=== PATIENT | female | born 1960 | race Caucasian/White ===

== ENCOUNTER → 2019-12-20 17:42 | Outpatient (CLI) | payer BC, SELFPAY ==
--- NOTE | ~2019-12-20 | XR_ITS ---
EXAMINATION: XR chest 2V 12/20/2019 18:03 INDICATION: Cough and shortness of breath PROCEDURE: 2 view chest COMPARISON: 09/18/2012 FINDINGS: The lungs are clear. The cardiomediastinal silhouette is within normal limits. There are no pleural effusions. There is no pneumothorax suspected. IMPRESSION: 1: NO ACUTE CARDIOPULMONARY DISEASE. Reviewed, dictated and finalized at location A.
== END ==
PROVIDERS: PCP Internal Medicine; Visit Provider Internal Medicine
DX: R05 Cough (principal)
CPT/HCPCS: 71046

== ENCOUNTER 2024-04-06 16:14 | Emergency (ER) | payer BC, SELFPAY ==
--- NOTE | ~2024-04-06 | XR_ITS ---
EXAMINATION: XR ankle LT min 3V DATE: 04/06/2024 16:27 INDICATION: Fall. TECHNIQUE: 3 views of left ankle were obtained. COMPARISON: None. FINDINGS: Bone alignment is normal. No fracture. There is mild midfoot osteoarthritis. There are enth esophytes at the posterior and plantar aspects of calcaneal tuberosity. Ankle soft tissue swelling is noted. IMPRESSION: 1. No fracture. Reviewed, dictated and finalized at location E. IMPRESSION: 1. No fracture.
--- NOTE | ~2024-04-06 | XR_ITS ---
EXAMINATION: XR ankle RT min 3V DATE: 04/06/2024 16:27 INDICATION: Fall. TECHNIQUE: 3 views of right ankle were obtained. COMPARISON: None. FINDINGS: Bone alignment is normal. There is an oblique fracture of distal fibula with medial aspect of the fracture line at the level of the tibial plafond. The distal fracture fragment demonstrates 2 mm posterolateral displacement. There is an avulsion fracture of distal tip of the medial malleolus. There is a chip fracture of the posterior malleolus. There is mild midfoot osteoarthritis. There are enthesophytes at the posterior and plantar aspects of calcaneal tuberosity. Ankle soft tissue swellin g is noted. IMPRESSION: 1. Trimalleolar ankle fracture. Reviewed, dictated and finalized at location E.
[2024-04-06 16:20] VITALS: BP 195/61; PULSE 72; RESP 18; TEMP 36.9; O2SAT 100
--- NOTE | 2024-04-06 16:32 | ED.GENADULT ---
HPI - General Adult General Chief complaint: Extremity Injury, Lower Stated complaint: ankle injury Time Seen by Provider: 04/06/24 16:17 History of Present Illness HPI narrative: 63 old female presents to the emergency department for evaluation for bilateral ankle pain. Patient reports she was walking down the stairs missed the last step and rolled both her ankles. Patient denies striking her head and denies any loss consciousness. Related Data Home Medications Medication Instructions Recorded Confirmed albuterol sulfate 90 mcg/actuation 1 puff inhalation Q4H PRN 08/24/22 08/30/23 aerosol inhaler clobetasol 0.05 % topical cream 1 applic topical DAILY 08/24/22 08/30/23 fenofibrate 160 mg tablet 160 mg PO DAILY 08/24/22 08/30/23 glimepiride 4 mg tablet 4 mg PO QAM 08/24/22 08/30/23 hydroxychloroquine 200 mg tablet 200 mg PO BID 08/24/22 08/30/23 metformin 500 mg tablet,extended 500 mg PO BID 08/24/22 08/30/23 release 24 hr metoprolol tartrate 50 mg tablet 50 mg PO BID 08/24/22 08/30/23 aspirin 325 mg tablet 325 mg PO DAILY 08/30/23 08/30/23 ferrous sulfate 325 mg (65 mg mg PO 08/30/23 08/30/23 iron) tablet (FeroSul) lisinopril 20 tablet PO 08/30/23 08/30/23 mg-hydrochlorothiazide 25 mg tablet Allergies Allergy/AdvReac Type Severity Reaction Status Date / Time hydrocodone Allergy Severe DIFFICULTY Verified 04/06/24 16:26 SWALLOWING Review of Systems Review of Systems: All systems reviewed & are unremarkable except as noted in HPI and below PMFSH Past Medical History Medical History (Updated 04/06/24 @ 17:09 by Robert Canchola MD) Diabetes type 2, controlled High cholesterol History of lump of right breast Hypertension Lupus Screening mammogram for breast cancer Surgical History Surgical History History of cholecystectomy (~1989) History of foot surgery (~03/20/19) (L) History of shoulder surgery (~1999) (R) shoulder History of suburethral sling procedure (~2008) History of total abdominal hysterectomy (~1997) Family History Family History Father Cerebrovascular accident Heart disease Mother Hypertension Diabetes mellitus Malignant neoplasm of uterus Sibling Multiple sclerosis sister Social History Social History (Updated 08/30/23 @ 08:46 by Aisha Garcia CMA) Smoking status: Never smoker Alcohol intake: current Alcohol use details: 1-2 month Substance use: never Substance use type: does not use Lack of Transportation: No Lack of Food: Sometimes True Current Housing: Decline to Answer Concerned About Future Housing: Decline to Answer Difficulty Paying Gas/Electric Bills: No Difficulty Paying for Meds: No Currently Unemployed: YES Education: High School Diploma/GED Difficulty w/ Childcare or Family Care: No Living arrangements: other Additional living arrangements comments: Occupation/Education: retired Gender identity (if verbalized by the patient): Female Sexual Orientation (if Verbalized by the Patient): Straight or Heterosexual Course Course Emergency Course: Patient was placed in a splint , and encouraged close follow-up with Orthopedics. Vital Signs Vital signs: Vital Signs Temperature 98.4 F 04/06/24 16:20 Pulse Rate 72 04/06/24 16:20 Respiratory Rate 18 04/06/24 16:20 Blood Pressure 195/61 H 04/06/24 16:20 Pulse Oximetry 100 04/06/24 16:20 Oxygen Delivery Room Air 04/06/24 16:20 Temperature 98.4 F 04/06/24 16:20 Pulse Rate 72 04/06/24 16:20 Respiratory Rate 18 04/06/24 16:20 Blood Pressure 195/61 H 04/06/24 16:20 Pulse Oximetry 100 04/06/24 16:20 Oxygen Delivery Room Air 04/06/24 16:20 Medical Decision Making MDM Narrative Medical decision making narrative: [age] old female presented emergency department for evaluation for bilateral
[2024-04-06] MEDS: KETOROLAC 30 MG/ML VIAL (*BKC) IM (17:14)
== END 2024-04-06 17:34 | disposition home or self-care (01) ==
PROVIDERS: Emergency Provider Emergency Medicine; PCP Internal Medicine
DX: S82.851A Displaced trimalleolar fracture of right lower leg, initial encounter for closed fracture (principal); E11.9 Type 2 diabetes mellitus without complications; Z79.84 Long term (current) use of oral hypoglycemic drugs; E78.5 Hyperlipidemia, unspecified; I10 Essential (primary) hypertension; X50.0XXA Overexertion from strenuous movement or load, initial encounter
CPT/HCPCS: 29515; 73610; 96372; 99284; J1885

== ENCOUNTER 2024-11-14 07:56 | Outpatient (CLI) | payer OTHER, SELFPAY ==
--- NOTE | ~2024-11-14 | MM_ITS ---
EXAMINATION: MM screening kaitlynn BI w jessica HISTORY: Screening TECHNIQUE: Craniocaudal and mediolateral oblique 3-D tomosynthesis images were obtained and synthetic 2-D images were generated. CAD analysis was submitted and interpreted. COMPARISON: No prior mammogram is available for comparison at this institution. BREAST PARENCHYMAL COMPOSITION: Not dense: There are scattered areas of fibroglandular density. FINDINGS: There is no evidence of suspicious mass, calcification, or architectural distortion to sugg est malignancy in either breast. There has been no suspicious interval change. IMPRESSION: 1. No mammographic evidence of malignancy. 2. Recommend routine screening mammography in one year. BI-RADS Category 1: Negative Reviewed, dictated and finalized at location B. [facility]
--- OUTSIDE RECORDS SUMMARY | 2024-11-14 08:01 | XMS_ITS | Referral Summary ---
Author Organization [facility] Address [address] [place] [address] Care Team Providers Care Director Of Rooms Name Role Phone Fabiano Horowitz MD Primary Care Provider [phone] Lew Green MD Unavailable [phone] Allergies Active Allergy Reactions Criticality Noted Date Comments Hydrocodone-Acetamin ophen Other (See comments),Shortness of breath High 09/03/2012 shortness of breath dysphagia Medications zinc gluconate 50 mg tablet Take 1 tablet by mouth daily Active metFORMIN XR (GLUCOPHAGE XR) 500 mg 24 hr tablet Take 500 mg by mouth 4 (four) times a day 1 07/31/2019 Active lancets misc 1 each by other route daily 12/03/2018 Active glimepiride (AMARYL) 4 mg tablet daily 06/14/2019 Active cholecalciferol (VITAMIN D-3) 5,000 unit capsule Take by mouth daily 07/23/2015 Active blood glucose diagnostic strip daily 09/10/2014 Ac tive aspirin 81 mg chewable tablet 81 mg daily Ac tive albuterol HFA (PROVENTIL HFA,VENTOLIN HFA,PROAIR HFA) 90 mcg/actuation inhaler Inhale 2 puffs every 6 (six) hours as needed 10/25/2018 Active fenofibrate (TRIGLIDE) 160 mg tablet daily 08/14/2019 Active metoprolol tartrate (LOPRESSOR) 50 mg immediate release tablet Take 1 tablet (50 mg total) by mouth daily 90 tablet 1 06/24/2021 Active metoprolol tartrate (LOPRESSOR) 50 mg immediate release tablet Take 1 tablet (50 mg total) by mouth 2 (two) times a day 180 tablet 1 11/04/2021 Active hydrALAZINE (APRESOLINE) 100 mg tablet Take 100 mg by mouth 2 (two) times a day Active amLODIPine (NORVASC) 5 mg tablet Take 1 tablet (5 mg total) by mouth daily 90 tablet 12/21/2021 Active Active Problems Problem Noted Date Diagnosed Date Renal insufficiency 08/09/2019 Anemia 08/09/2019 PVC (premature ventricular contraction) 11/07/19 19 Palpitations 10/25/2018 Iron deficiency anemia 09/22/2017 Chest pain 09/21/2017 Right hip pain 05/01/2017 Serum creatinine raised 09/28/2016 Hypercalcemia 09/20/2016 HTN (hypertension) 09/06/2016 Lipids abnormal 09/06/2016 Sleep apnea 09/06/2016 SOB (shortness of breath) 09/06/2016 Type 2 diabetes mellitus without complications ( [facility]) 09/06/2016 Chronic cough 08/26/2016 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 Sebaceous cyst 12/19/2013 Depression 06/18/2013 Insomnia 08/02/2012 Hyperlipidemia 06/18/2012 Social History Tobacco Use Types Packs/Day Years Used Date Smoking Tobacco: Never Tobacco Cessation:Counseling Given: No Alcohol Use Standard Drinks/Week Comments Yes 0 (1 standard drink = 0.6 oz pur e alcohol) Occasionally 1 drink a week Personal Safety Answer Date Recorded Getting School Help Needed Not on file 11/29 Comments Unknown Sex and Gender Information Value Date Recorded Sex Assigned at Not on file Legal Sex Female 2:23 PM [employer] Gender Identity Not on file Sexual Orientation Not on file Last Filed Vital Signs Vital Sign Reading Time Taken Comments Blood Pressure 130/62 12/01/2021 10:56 AM [employer] [employer] Pulse 71 12/01/2021 10:56 AM [employer] Temperature 36.3 C (97.3 F) 12/01/2021 10:56 AM [employer] Respiratory Rate - - Oxygen Saturation 98% 12/01/2021 10: 56 AM [employer] Inhaled Oxygen Concentration - - Weight 86.1 kg (189 lb 12.8 oz) 022 10:56 AM [employer] Height 154.9 cm (5' 1 ) 12/01/2021 10:5 6 AM [employer] Body Mass Index 35.86 12/01/2021 10:56 AM [employer] Plan of Treatment Not on file Procedures Procedure Name Priority Date/Time Associated Diagnosis Comments BASIC METABOLIC PANEL Routine 12/14/2021 2:33 PM [employer] [employer] Leg swelling LIPID PANEL Routine 08/14/2019 11:05 AM [employer] from Last 3 Months or Most Recently Relevant to Health Maintenance Results * (ABNORMAL) Basic metabolic panel (12/14/2021 2:33 PM [employer] [employer]) Glucose 201(H) 65 - 99 mg/dL [facility] Comment: Fasting reference interval For someone without known diabetes, a glucose value >125 mg/dL indicates that they may have diabetes and this should be confirmed with a follow-up test. BUN 34(H) 7 - 25 mg/dL [facility] Creatinine 1.20(H) 0.50 - 0.99 mg/dL [facility] Comment: For patients >49 years of age, the reference limit for Creatinine is approximately 13% higher for people identified as -Sudanese. eGFR NON-AFR. SYRIAN 48(L) > OR = 60 mL/min/1. 73m2 [facility] EGFR 56(L) > OR = 60 mL/min/1. 73m2 [facility] BUN/creat ratio 28(H) 6 - 22 (calc) [facility] Sodium 142 135 - 146 mmol/L [facility] Potassium, pl 4.6 3.5 - 5.3 mmol/L [facility] Chloride 106 98 - 110 mmol/L [facility] CO2 25 20 - 32 mmol/L [facility] Calcium 9.9 8.6 - 10.4 mg/dL [facility] Blood specimen (specimen) 12/14/2021 2:33 PM [facility] 12/14/2021 2:34 PM [employer] [employer] Lew Green MD LAB BLOOD ORDERABLES Final R esult Performing Organization Address [facility] Co de Phone Number LUISA Monson [address] [phone] * (ABNORMAL) Lipid panel (08/14/2019 11:05 AM [facility]) Cholesterol 145 <200 mg/dL [facility] HDL 37(L) >50 mg/dL [facility] Triglycerides 226(H) <150 mg/dL [facility] Comment: If a non-fasting specimen was collected, consider repeat triglyceride testing on a fasting specimen if clinically indicated. Ritu et al. J. of Clin. Lipidol. 2015;9:129-169. LDL 77 mg/dL (calc) [facility] Comment: Reference range: <100 Desirable range <100 mg/dL for primary prevention; <70 mg/dL for patients with CHD or diabetic patients with > or = 2 CHD risk factors. LDL-C is now calculated using the Devon-Hernandez calculation, which is a validated novel method providing better accuracy than the Friedewald equation in the estimation of LDL-C. Devon CUNNINGHAM et al. TROY. 2013;310(19): 3878-5987 (http://education.PinkUP/faq/BDR485) Chol/HDL ratio 3.9 <5.0 (calc) [facility] Non-HDL, (LDL+VLDL) 108 <130 mg/dL (calc) [facility] Comment: For patients with diabetes plus 1 major ASCVD risk factor, treating to a non-HDL-C goal of <100 mg/dL (LDL-C of <70 mg/dL) is considered a therapeutic option. 08/14/2019 11:0 5 AM [facility] [employer] 08/14/2019 11:06 AM [facility] [employer] Narrative [facility] - 08/15/2019 11:11 AM [facility] [employer] FASTING:YES FASTING: YES Resulting Agency Comment Performing Organization Information: Site ID: [id number] Name: Luisa Monson Address: [address] [id number] Director: rBian Travis D.O., MPH Lew Green MD LAB BLOOD ORDERABLES Final R esult [facility] [place] from Last 3 Months or Most Recently Relevant to Health Maintenance [place] Care Teams Director Of Rooms Relationship Specialty Start Date End Date Fabiano Horowitz MD [address] [place] [address] PCP - General 11/16/18 Lew Green MD [address] [place] [address] [facility] 08/08/19
--- OUTSIDE RECORDS SUMMARY | 2024-11-14 08:01 | XMS_ITS | Clinical Summary ---
Author Organization [facility] Address [address] [place] [address] Care Team Providers Care Nurse Auditor Name Role Phone oHdan Cisneros PA-C Primary Care Provider [phone] Source Comments [facility],non-owned Affiliates and Associated Physician Practices is amultiple site organization consisting of ambulatory clinics and hospital sitesin [place], [place], [place] and [place]. This disclosure is being madepursuant to the Care Everywhere program and may not contain all information available regarding this patient. Last updated 18.[facility] Allergies Active Allergy Reactions Criticality Noted Date Comments Hydrocodone-Acetaminophen Other High 12/04/2022 vicoden [Other] Unknown 12/04/2022 Medications * Be aware that medications may not be up to date on this document. Alwaysverify current medications with the patient. Medication Sig Dispensed Refills Start Date End Date Status albuterol (Proventil;Ventol in) (2.5 MG/3ML) 0.083% nebulizer solutionIndicatio ns:Bronchospasm Inhale by mouth 4 times daily as needed for Shortness of Breath or Wheezing Pt took prn for bronchitis before Reasons: Spasm of Lung Air Passages Active aspirin (Aspirin) 325 MG tablet Take 1 (one) tablet by mouth once daily Active VITAMIN D PO Takes Vit D3 once a day 5,000units Active tirzepatide (Mounjaro) 2.5 MG/0.5ML injection Inject 2.5 (two and one-half) mg subcutaneously every 7 days 04/06/2023 Active rizatriptan (Maxalt) 10 MG tablet Take 1 tab at the onset of migraine and may repeat in 2 hours if not resolved. 9 tablet 5 04/20/2023 Active Additional Information Patient not taking.Reported on 06/21/2023 ferrous sulfate 325 (65 FE) MG tabletIndications :Iron Deficiency Anemia Take 1 (one) tablet by mouth once daily Takes 2 a day Reasons: Anemia From Inadequate Iron in the Body 30 tablet 2 05/23/2023 Active citalopram (CeleXA) 20 MG tablet 1/2 tab daily for 1 week then increase to 1 tab daily 30 tablet 2 2023 Active Additional Information Patient not taking.Reported on 06/21/2023 hydroxychloroquin e (Plaquenil) 200 MG tablet 06/13/2023 Active bifantis (Align) capsule Take 1 (one) capsule by mouth once daily 30 capsule 5 06/21/2023 Active metoprolol tartrate IR (Lopressor) 50 MG tabletIndications :Hypertension Take 1 (one) tablet by mouth 2 times daily Reasons: High Blood Pressure Disorder 180 tablet 1 08/09/2023 Active atorvastatin (Lipitor) 20 MG tablet TAKE 1 TABLET BY MOUTH ONCE DAILY AT BEDTIME DIRECTED FOR CHOLESTEROL. 90 tablet 1 09/14/2023 Active azithromycin (Zithromax) 250 MG tablet 2 tabs now and 1 tab days 2-5 6 tablet 10/17/2023 Active methylPREDNISolon e (Medrol Dosepak) 4 MG tablet Take by mouth as directed Take as directed by mouth per package instructions. 21 tablet 10/17/2023 Active lisinopril-hydroC HLOROthiazide (Prinzide; Zestoretic) 20-25 MG tablet TAKE ONE (1) TABLET BY MOUTH ONCE DAILY, IN THE MORNING, DIRECTED FOR FLUID, SWELLING, OR BLOOD PRESSURE. 90 tablet 1 11/03/2023 Active Continuous Blood Gluc Sensor (Dexcom G6 Sensor) MISCIndications:T ype 2 diabetes mellitus without complication, without long-term current use of insulin (HCC) Use 1 device once daily 1 Each 12/12/2023 Active Continuous Blood Gluc Transmit (Dexcom G6 Transmitter) MISCIndications:T ype 2 diabetes mellitus without complication, without long-term current use of insulin (HCC) Use 1 device once daily 1 Each 12/12/2023 Active Continuous Blood Gluc Potable Water Treatment Operator (Dexcom G6 Potable Water Treatment Operator) DEVIIndications:T ype 2 diabetes mellitus without complication, without long-term current use of insulin (HCC) Use 1 device once daily 1 device 12/12/2023 Active metFORMIN (Glucophage) 500 MG tablet TAKE 1 (ONE) TABLET BY MOUTH 2 TIMES DAILY, WITH MORNING AND EVENING MEALS, FOR BLOOD SUGAR 60 tablet 03/15/2024 Active glimepiride (Amaryl) 4 MG tablet TAKE ONE TABLET BY MOUTH ONCE DAILY IN THE MORNING 90 tablet 04/04/2024 Active Active Problems Problem Noted Date Diagnosed Date Systemic lupus erythematosus 04/07/2023 Type 2 diabetes mellitus wit hout complication, without long-term current use of insulin 04/07/2023 Mixed hyperlipidemia 04/07/2023 Primary hypertension 04/07/2023 Iron deficiency anemia 04/07/2023 Migraine without aura and wi thout status migrainosus, not intractable 04/07/2023 Hyperkalemia 12/05/2022 Family History Medical History Relation Name Comments CVA Father Diabetes; unknown type Maternal Grandmother Cancer - Other Mother Relation Name Status Comments Father Maternal Grandmother Mother Social History Tobacco Use Types Packs/Day Years Used Date Smoking Tobacco: Never Smokeless Tobacco: Never Tobacco Cessation:Counseling Given: Not Answered Alcohol Use Standard Drinks/Week Comments Yes 0 (1 standard drink = 0.6 oz pur e alcohol) Overall Financial Resource Strain (CARDIA) Answe r Date Recorded How hard is it for you to pa y for the very basics like food, housing, medical care, and heating? Not hard at all 12/05/2022 PHQ-2 Answer Date Recorded Patient Health Questionnaire-2 Score 0 06/21/2023 [facility] - Occupational Stress Questionnaire Answer Date Recorded Do you feel stress - tense, restless, nervous, or anxious, or unable to sleep at night because your mind is troubled all the time - these days? Only a little 12/05/2022 Hunger Vital Sign Answer Date Recorded Within the past 12 months, y ou worried that your food would run out before you got the money to buy more. Never true 12/05/19 23 Within the past 12 months, t he food you bought just didn't last and you didn't have money to get more. Never true 12/05/2022 PRAPARE - Transportation Answer Date Re corded In the past 12 months, has l ack of transportation kept you from medical appointments or from getting medications? No 11/10 In the past 12 months, has l ack of transportation kept you from meetings, work, or from getting things needed for daily living? No 12/05/2022 Housing Stability Vital Sign Answer Deven e Recorded In the last 12 months, was t here a time when you were not able to pay the mortgage or rent on time? No 12/05/2022 In the last 12 months, how many places have you lived? 1 12/05/2022 In the last 12 months, was t here a time when you did not have a steady place to sleep or slept in a [facility] (including now)? No 12/05/2022 Sex and Gender Information Value Date Recorded Sex Assigned at Not on file Gender Identity Not on file Sexual Orientation Not on file Last Filed Vital Signs Vital Sign Reading Time Taken Comments Blood Pressure 148/76 06/21/2023 9:47 AM CDT Pulse 59 06/21/2023 9:47 AM CDT Temperature 36.2 C (97.1 F) 06/21/2023 9:47 AM CDT Respiratory Rate 23 12/06/2022 3:49 AM MASTER AUTOMOTIVE TECHNICIAN Oxygen Saturation 98% 06/21/2023 9:47 AM CDT Inhaled Oxygen Concentration - - Weight 88.8 kg (195 lb 12.8 oz) 06/21/2023 9:47 AM CDT Height 154.9 cm (5' 1 ) 12/05/2022 12:0 1 AM MASTER AUTOMOTIVE TECHNICIAN Body Mass Index 37 12/05/2022 12:01 AM MASTER AUTOMOTIVE TECHNICIAN Plan of Treatment Health Maintenance Due Date Last Done Comments BONE DENSITY TESTING 1960 COLOGUARD (AGES 45-75) - COLON CA SCREENING [address] COLONOGRAPHY - COLON CA SCREENING 1959 FIT - COLON CA SCREENING 1959 FLEX SIG - COLON CA SCREENING 1960 MAMMOGRAM 1959 PAP SMEAR 1959 HIV SCREENING 1974 HEPATITIS C SCREENING 06/03/1977 DTAP/TDAP/TD VACCINES (1 - Tdap) 1978 PNEUMOCOCCAL VACCINE 50+ (1 of 2 - PCV) 1978 ZOSTER VACCINE (1 of 2) 2009 DIABETES-FOOT EXAM WITH MONOFILAMENT 04/07/2023 DIABETES-HGB A1C 09/07/2023 06/07/2023, , 11/22/2022 DIABETES-SERUM CREATININE 02/21/20242022, 12/06/2022, 12/05/2022, Additional history exists COVID-19 VACCINE ( season) 2024 09/15/2021, 12/16/2020, 11/25/2020 INFLUENZA VACCINE (#1) 2024 , 07/08/2020, 12/05/2019, Additional history exists DEPRESSION SCREENING 10/09/2024 04/07/2023 DIABETES - URINE PROTEIN SCREENING 10/09/2024 11/22/2022 DIABETES RETINOPATHY SCREENING 06/06/2025 06/06/2023 COLONOSCOPY - COLON CA SCREENING 10/11/2032 10/11/2022 Colorectal Cancer Screening 10/11/2032 Respiratory Syncytial Virus (RSV) Vaccine Pt: or over 60 yrs (1 - 1-dose 75+ series) 2034 HEPATITIS B VACCINE Aged Out No longe r eligible based on patient's age to complete this topic HIB VACCINE Aged Out No longer eligi ble based on patient's age to complete this topic HPV VACCINE Aged Out No longer eligi ble based on patient's age to complete this topic MENINGOCOCCAL (Group B) VACCINE Aged Out No longer eligible based on patient's age to complete this topic MENINGOCOCCAL VACCINE Aged Out No michael hakeem eligible based on patient's age to complete this topic Procedures Procedure Name Priority Date/Time Associated Diagnosis Comments HEMOGLOBIN A1C - POINT OF CARE (AMB) [facility] Routine 06/07/2023 11:20 AM CDT Type 2 diabetes mellitus without complication, without long-term current use of insulin (HCC) EYE EXAM 06/06/2023 BASIC METABOLIC PANEL (CALCIUM TOTAL) Routine 12/06/2022 4:49 AM MASTER AUTOMOTIVE TECHNICIAN from Last 3 Months or Most Recently Relevant to Health Maintenance Results * (ABNORMAL) HEMOGLOBIN A1C - POINT OF CARE (AMB) [facility] (06/07/2023 11:20 AM CDT) Hemoglobin A1c POCT 8.5(A) 4.2 - 5.8 % [facility] QC Verified Yes Yes [facility] Blood BLOOD SPECIMEN / Unknown 06/07/2023 11:20 AM CDT Hodan Cisneros PA-C LAB - POINT OF CAR E ORDERABLES [facility] [id number] [phone] * EYE EXAM (06/06/2023) Anatomical Region Laterality Modality Other 06/06/2023 Narrative 06/06/2023 Ordered by an unspecified provider. Scanned Document SCANNING ONLY * (ABNORMAL) BASIC METABOLIC PANEL (CALCIUM TOTAL) (12/06/2022 4:49 AM MASTER AUTOMOTIVE TECHNICIAN) Pathologist [facility] Glucose 124 70 - 125 mg/dL 12/06/2022 5:55 AM MASTER AUTOMOTIVE TECHNICIAN [facility] Sodium 143 136 - 145 mmol/L 12/06/2022 5:55 AM MASTER AUTOMOTIVE TECHNICIAN [facility] Potassium 4.3 3.4 - 5.1 mmol/L 12/06/2022 5:55 AM MASTER AUTOMOTIVE TECHNICIAN [facility] Chloride 111(H) 98 - 107 mmol/L 12/06/2022 5:55 AM MASTER AUTOMOTIVE TECHNICIAN [facility] CO2 25 22 - 29 mmol/L 12/06/2022 5:55 AM MASTER AUTOMOTIVE TECHNICIAN [facility] Calcium 8.90 8.4 - 10.2 mg/dL 12/06/2022 5:55 AM MASTER AUTOMOTIVE TECHNICIAN [facility] Anion Gap 11 10 - 20 mmol/L 12/06/2022 5:55 AM MASTER AUTOMOTIVE TECHNICIAN [facility] BUN 34.7(H) 9.8 - 20.1 mg/dL 12/06/2022 5:55 AM MASTER AUTOMOTIVE TECHNICIAN [facility] Creatinine 0.95 0.57 - 1.11 mg/dL 12/06/2022 5:55 AM MASTER AUTOMOTIVE TECHNICIAN [facility] eGFR 67(L) >90 mL/min/1.7 3m2 12/06/2022 5:55 AM MASTER AUTOMOTIVE TECHNICIAN [facility] Comment:The GFR result was c alculated using the updated CKD-EPI Creatinine Equation (2020). Blood BLOOD SPECIMEN / Unknown Lab Venipuncture / Unknown 12/06/2022 4:49 AM MASTER AUTOMOTIVE TECHNICIAN 12/06/2022 5:34 AM MASTER AUTOMOTIVE TECHNICIAN Balwinder Rasheed DO LAB - CHEMISTRY WILTONE [facility] [address] from Last 3 Months or Most Recently Relevant to Health Maintenance Advance Directives * Full Code (Latest Code Status on File) Date Activated Date Inactivated Comments 12/05/2022 6:47 AM 12/06/2022 1:19 PM Care Teams Nurse Auditor Relationship Specialty Start Date End Date Hodan Cisneros PA-C [id number] [place] [address] PCP - General Physician Fire Official 04/07/23
--- OUTSIDE RECORDS SUMMARY | 2024-11-14 08:01 | XMS_ITS | Clinical Summary ---
Author Organization [facility] Address [address] [place] [address] Care Team Providers Care Boots And Shoes Supervisor Name Role Phone Fabiano Horowitz MD Primary Care Provider [phone] Allergies Active Allergy Reactions Criticality Noted Date Comments Hydrocodone-Acetaminophen Other (see comment) 1 11/03/2011 dysphagia Medications vitamin D3, cholecalciferol , 5000 UNITS capsule Take by mouth daily. 015 Active triamcinolone 0.5 % cream Apply topically 2 (two) times daily as needed (skin lupus). 015 Active CVS ZINC 50 MG Tab Take 1 tablet (50 mg total) by mouth daily. Active Lancets (ONETOUCH ULTRASOFT) lancetsIndicati ons:Type 2 diabetes mellitus ([facility]) 1 each by Other route daily. 100 each 3 019 Active clobetasol 0.05 % cream clobetasol 0.05 % topical cream APPLY TO AFFECTED AREA TWICE A DAY Active Glucose Blood (ONE TOUCH ULTRA TEST STRIPS) test stripIndication s:Type 2 diabetes mellitus without complication, without long-term current use of insulin ([facility]) 1 strip by Other route daily. 100 strip 3 022 Active albuterol (PROVENTIL) (2.5 MG/3ML) 0.083% nebulizer solutionIndicat ions:Acute cough,Wheezing Take 3 mLs (2.5 mg total) by nebulization every 4 (four) hours as needed. 360 mL 1 022 Active Blood Glucose Monitoring Suppl (ONE TOUCH ULTRA 2) w/Device KitIndications: Type 2 diabetes mellitus without complication, without long-term current use of insulin ([facility]) Use daily 1 kit 022 Active Ferrous Sulfate (IRON) 325 (65 Fe) MG tabletIndicatio ns:Iron deficiency anemia, unspecified iron deficiency anemia type TAKE 2 TABLETS BY MOUTH IN THE MORNING 180 tablet 023 Active rizatriptan (MAXALT) 10 MG tabletIndicatio ns:Migraine without status migrainosus, not intractable, unspecified migraine type Take 1 tablet (10 mg total) by mouth as needed for Migraine. May repeat in 2 hours if needed 8 tablet 023 Active metoprolol tartrate (LOPRESSOR) 50 MG tabletIndicatio ns:Primary hypertension Take 1 tablet (50 mg total) by mouth 2 (two) times daily. 180 tablet 3 024 Active atorvastatin (LIPITOR) 20 MG tabletIndicatio ns:Primary hypertension,TI A (transient ischemic attack) Take 1 tablet (20 mg total) by mouth nightly at bedtime. 90 tablet 1 024 Active hydrALAZINE (APRESOLINE) 50 MG tabletIndicatio ns:Primary hypertension take 1 tablet by mouth twice a day 180 tablet 024 Active metFORMIN (GLUCOPHAGE) 500 MG tabletIndicatio ns:Type 2 diabetes mellitus ([facility]) Take 1 tablet (500 mg total) by mouth 2 (two) times daily. 180 tablet 1 024 Active semaglutide (OZEMPIC, 0.25 OR 0.5 MG/DOSE,) 2 MG/3ML injection (PEN)Indication s:Type 2 diabetes mellitus with other circulatory complication, without long-term current use of insulin ([facility]) INJECT 0.25 MG INTO THE SKIN EVERY 7 DAYS FOR DIABETES 3 mL 2 024 Active azithromycin (ZITHROMAX Z-MONA) 250 MG tabletIndicatio ns:Acute cough Take 2 tablets by mouth on day one then 1 daily for four days. 6 tablet 024 Active Continuous Glucose Sensor (FREESTYLE SRIRAM 3 SENSOR) MiscIndications :Type 2 diabetes mellitus with other circulatory complication, without long-term current use of insulin ([facility]/HCC) APPLY 1 DEVICE EVERY 14 DAYS 2 each 2 024 Active methylPREDNISol one, MONA, (MEDROL DOSEPAK) 4 MG tabletIndicatio ns:Chronic cough 6 TABLETS ON DAY ONE, 5 TABLETS DAY TWO, 4 TABLETS DAY THREE, 3 TABLETS DAY FOUR, 2 TABLETS DAY FIVE, AND 1 TABLET DAY SIX 1 each Active benzonatate (TESSALON PERLES) 100 MG capsuleIndicati ons:Acute cough Take 1 capsule (100 mg total) by mouth every 6 (six) hours as needed for Cough. 30 capsule 024 Active glimepiride (AMARYL) 4 MG tabletIndicatio ns:Type 2 diabetes mellitus ([facility]) TAKE 1 TABLET BY MOUTH ONCE DAILY IN THE MORNING BEFORE BREAKFAST 90 tablet 1 025 Active albuterol sulfate HFA (PROAIR HFA) 108 (90 Base) MCG/ACT inhalerIndicati ons:Acute cough Inhale 2 puffs into the lungs every 6 (six) hours as needed for Wheezing. 8.5 g 1 025 Active glimepiride (AMARYL) 4 MG tabletIndicatio ns:Type 2 diabetes mellitus ([facility]) TAKE 1 TABLET BY MOUTH ONCE DAILY IN THE MORNING BEFORE BREAKFAST 90 tablet 1 024 2024 Discontinued albuterol sulfate HFA 108 (90 Base) MCG/ACT inhalerIndicati ons:Acute cough Inhale 2 puffs into the lungs every 6 (six) hours as needed for Wheezing. 18 g 1 024 2024 Discontinued(R eorder) azithromycin (ZITHROMAX Z-MONA) 250 MG tabletIndicatio ns:Chest congestion Take 2 tablets by mouth on day one then 1 daily for four days. 6 tablet 025 2024 albuterol sulfate HFA 108 (90 Base) MCG/ACT inhalerIndicati ons:Acute cough Inhale 2 puffs into the lungs every 6 (six) hours as needed for Wheezing. 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) 10/10/2012 Insomnia 08/02/2012 Mixed hyperlipidemia 06/18/2012 Primary hypertension 06/15/2012 Obesity 06/18/2010 Resolved Problems Problem Noted Date Diagnosed Date Resolved Date Anemia 08/09/2019 01/19/2021 Iron deficiency anemia 09/22/201705/13 Right hip pain 05/01/2017 01/19/2021 Shortness of breath 09/03/2012 01/20/20 21 Dyslipidemia 06/18/2010 05/23/2022 Encounters Date Type Department Care Team Description 11/05/2024 Telephone [facility] Internal [address] [address] Fabiano Horowitz MD Prior Authorization (Albuterol HFA 90 mcg inhaler) 10/25/2024 Telephone [facility] Internal [address] [phone] Fabiano Horowitz MD Medication Request 10/16/2024 Telephone [facility] Internal [address] [address] Fabiano Horowitz MD Medication Request 09/04/2024 Telephone [facility] Internal [address] [address] Fabiano Horowitz MD Medication Request; Prior Authorization (Freestyle sriram 3 sensors) 09/02/2024 Telephone [facility] Internal [address] [address] Fabiano Horowitz MD Prior Authorization 08/29/2024 Telephone [facility] Internal [address] [address] Fabiano Horowitz MD Prior Authorization (Freestyle Sriram 3 Sensor) 08/29/2024 Telephone [facility] Internal [address] [address] Fabiano Horowitz MD Cough 08/26/[address] [address] Fabiano Horowitz MD Medication 08/19/[address] [address] Fabiano Horowitz MD Orders from Last 3 Months Immunizations Name Administration Dates Next Due COVID-19 Vaccine (Generic) 11/25/2020 Flucelvax 6 Months+ (Prefilled Syringe) 12/05/19 20 Fluzone 6 Months+ Quad (0.5 mL Prefilled Syringe ) 07/27/2021 Influenza (Generic) 06/24/2013 Influenza Adult (Generic) 07/08/2020 PFIZER COVID-19 (ORIGINAL FO RMULATION, PURPLE CAP) mRNA, LNP-S, PF, 30 MCG/0.3 ML DOSE 12/16/2020,11/25/2020 Shingrix 09/20/2020,07/08/2020 Family History Medical History Relation Comments Stroke Father Uterine Cancer Mother Relation Status Comments Brother 1 Alive Brother 2 Alive Brother 3 Alive Brother 4 Alive Father Maternal Grandfather Maternal Grandmother Mother Alive Paternal Grandfather Paternal Grandmother Sister 1 Alive Sister 2 Alive Sister 3 Alive Social History Tobacco Use Types Packs/Day Years Used Date Smoking Tobacco: Never Smokeless Tobacco: Never Tobacco Cessation:Counseling Given: Not Answered Alcohol Use Standard Drinks/Week Comments Yes 0 (1 standard drink = 0.6 oz pur e alcohol) occasionally 1 per month AUDIT-C Answer Date Recorded Frequency of Alcohol Consumption 2-4 times a mon th 03/11/2019 Average Number of Drinks 1 or 2 019 Frequency of Binge Drinking Never 12/2018 PHQ-2 Answer Date Recorded Patient Health Questionnaire-2 Score 1 05/13/2024 Comments No Sex and Gender Information Value Date Recorded Sex Assigned at Female 03/11/2019 1:57 PM CDT Legal Sex Female 8:11 PM CDT Gender Identity Female 03/11/2019 1:57 PM CDT Sexual Orientation Straight 03/11/2019 1: 57 PM CDT Last Filed Vital Signs Vital Sign Reading Time Taken Comments Blood Pressure 120/62 05/13/2024 3:09 PM CDT Pulse 69 05/13/2024 3:09 PM CDT Temperature 36.7 C (98.1 F) 05/13/2024 3:09 PM CDT Respiratory Rate 14 05/13/2024 3:09 PM CDT Oxygen Saturation 98% 05/13/2024 3:09 PM CDT Inhaled Oxygen Concentration - - Weight 85.3 kg (188 lb) 05/13/2024 3:09 PM CDT Height 154.9 cm (5' 1 ) 05/13/2024 3:09 PM CDT Body Mass Index 35.52 05/13/2024 3:09 PM CDT Plan of Treatment Health Maintenance Due Date Last Done Comments Kidney Health Evaluation 1959 Pneumococcal Vaccine: 65+ Years (1 of 2 - PCV) 1965 Pneumococcal Vaccine: Pediatrics (0 to 5 Years) and At-Risk Patients (6 to 64 Years) (1 of 2 - PCV) 1965 Hepatitis C 1977 DTaP, Tdap and Td Vaccines (1 - Tdap) 1978 Mammogram Screening 1999 RSV Immunization or 60+ Years (1 - Risk 60-74 years 1-dose series) 2019 Diabetes: Retinopathy Eye Exam 07/31/2021 07/31/2019 Dexa Scan (General) 2024 COVID-19 Vaccine ( season) 2024 09/25/2023, 09/15/2021, 12/16/2020, Additional history exists Influenza Adult (#1) 2024 07/27/2021, 07/08/2020, 12/05/2019, Additional history exists PHQ-2 (Physician [place]) 10/09/2024 05/13/2024 Hemoglobin A1C 10/23/2024 04/22/2024, 05/11, 02/20/2023, Additional history exists Lipid Panel 04/22/2025 04/22/2024, 11/09, 11/08/2021, Additional history exists Colorectal Cancer Screening Colonoscopy (10 Years) 10/11/2032 10/11/2022, 10/11/2022 Zoster Vaccines Completed 09/20/2020, 07/08/2020 Meningococcal B Vaccine Aged Out No l onger eligible based on patient's age to complete this topic Meningococcal Vaccine Aged Out No michael hakeem eligible based on patient's age to complete this topic RSV Immunizations Under 20 Months Aged Out No longer eligible based on patient's age to complete this topic Procedures Procedure Name Priority Date/Time Associated Diagnosis Comments LIPID PANEL Routine 04/22/2024 11:25 AM CDT Mixed hyperlipidemia HEMOGLOBIN, GLYCOSYLATED Routine 04/22/2024 11:25 AM CDT Type 2 diabetes mellitus with stage 2 chronic kidney disease, without long-term current use of insulin ([facility]) COLONOSCOPY Routine 10/11/2022 5:49 AM WINDSHIELD INSTALLER DILATED EYE EXAM (SCAN) Routine 07/31/2019 from Last 3 Months or Most Recently Relevant to Health Maintenance Results * (ABNORMAL) HEMOGLOBIN, GLYCOSYLATED (04/22/2024 11:25 AM CDT) HGB A1C 6.9(H) 4.5 - 6.2 % 04/22/2024 3:25 PM CDT [facility] ESTIMATED AVG GLUCOSE 151(H) 74 - 106 MG/DL 04/22/2024 3:25 PM CDT [facility] 04/22/2024 11:2 5 AM CDT Fabiano Horowitz MD LABORATORY Final Result [facility] [address] [place] [address], * (ABNORMAL) LIPID PANEL (04/22/2024 11:25 AM CDT) [facility] Signature CHOLESTEROL 121 <200 MG/DL 04/22/2024 5:14 PM CDT [facility] TRIGLYCERIDES 169(H) <150 MG/DL 04/22/2024 5:14 PM CDT [facility] HDL 50 >40 MG/DL 04/22/2024 5:14 PM CDT [facility] LDL-C 37 <100 MG/DL 04/22/2024 5:14 PM CDT [facility] VLDL CALCULATION 34(H) 5 - 28 MG/DL 04/22/2024 5:14 PM CDT [facility] CHOL/HDL RATIO 2.4 0.0 - 4.0 04/22/2024 5:14 PM CDT [facility] LDL/HDL 0.7 0.41 - 2.13 04/22/2024 5:14 PM CDT [facility] NON HDL CHOLESTEROL 71 <140 MG/DL 04/22/2024 5:14 PM CDT [facility] 04/22/2024 11:2 5 AM CDT Fabiano Horowitz MD LABORATORY Final Result [facility] [address] [place] [address], * DILATED EYE EXAM (07/31/2019) us Documents Scanned SCANNING Edited Result - Final from Last 3 Months or Most Recently Relevant to Health Maintenance Insurance [employer] Care Teams Boots And Shoes Supervisor Relationship Specialty Start Date End Date aFbiano Horowitz MD [address] [place] [address] PCP - General 03/13/14
--- OUTSIDE RECORDS SUMMARY | 2024-11-14 08:01 | XMS_ITS | Clinical Summary ---
Author Organization [facility] Address [address] [place] [address] Care Team Providers Care Stabilizing Machine Operator Name Role Phone Fabiano Horowitz MD Primary Care Provider Lew Green MD Unavailable [phone] Allergies Active Allergy Reactions Criticality Noted Date [...] Type 2 diabetes mellitus without complications ( [facility]) 09/06/2016 Chronic cough 08/26/2016 Allergic vasculitis ([facility]) 01/16/2015 Sebaceous cyst 12/19/2013 Depression 06/18/2013 Insomnia 08/02/2012 Hyperlipidemia 06/18/2012 Family History Medical History Relation Name Comments Stroke Father Diabetes Mother Hyperlipidemia Mother Hypertension Mother Uterine cancer Mother Relation Name Status Comments Father Mother Alive Social History Tobacco Use Types Packs/Day [...] on file Legal Sex Female 2:23 PM AIRCRAFT MACHINIST HELPER Gender Identity Not on file Sexual Orientation Not on file Obstetrics History Last Filed Vital Signs Vital Sign Reading Time Taken Comments Blood Pressure 130/62 12/01/2021 10:56 AM AIRCRAFT MACHINIST HELPER Pulse 71 12/01/2021 10:56 AM AIRCRAFT MACHINIST HELPER Temperature 36.3 C (97.3 F) 12/01/2021 10:56 AM AIRCRAFT MACHINIST HELPER Respiratory Rate - - Oxygen Saturation 98% 12/01/2021 10: 56 AM AIRCRAFT MACHINIST HELPER Inhaled Oxygen Concentration - - Weight 86.1 kg (189 lb 12.8 oz) 022 10:56 AM AIRCRAFT MACHINIST HELPER Height 154.9 cm (5' 1 ) 12/01/2021 10:5 6 AM AIRCRAFT MACHINIST HELPER Body Mass Index 35.86 12/01/2021 10:56 AM AIRCRAFT MACHINIST HELPER Plan of Treatment Health Maintenance Due Date Last Done Comments Albumin Creatinine Ratio, Urine 1959 Breast Cancer Screening-Mammogram 1959 Cervical Cancer Screening 1959 Colon Cancer Screening-Colonoscopy 1959 Depression Screening 1959 Fall Risk Assessment 1959 Hemoglobin A1C 1959 Hepatitis C Screening 1959 Osteoporosis Screening-Bone Density Scan 1959 Dilated Eye Exam 1959 Foot Exam 1959 Pneumococcal vaccine 65+ (1 of 2 - PCV) 1965 DTaP/Tdap/Td Vaccine (1 - Tdap) 1970 Hepatitis B Screening 1977 Lipid Panel 11/08/2022 11/08/2021, 08/14/2019 eGFR 12/14/2022 12/14/2021, 04/0 02/2021, 08/14/2019 Well Visit 65+ 2024 Covid-19 Vaccine (3 - 2023-2 5 season) 2024 12/16/2020, 11/25/2020 Influenza Vaccine (#1) 2024 , 07/08/2020, 12/05/2019, Additional history exists Zoster Vaccine Completed 09/20/2020, 07/08/2020 Procedures Procedure Name Priority Date/Time Associated Diagnosis Comments BASIC METABOLIC PANEL Routine 12/14/2021 2:33 PM AIRCRAFT MACHINIST HELPER Leg swelling LIPID PANEL Routine 08/14/2019 11:05 AM AIRCRAFT MACHINIST HELPER from Last 3 Months or Most Recently Relevant to Health Maintenance Results * (ABNORMAL) Basic metabolic panel (12/14/2021 2:33 PM AIRCRAFT MACHINIST HELPER) Glucose 201(H) 65 - 99 mg/dL [facility] [...] approximately 13% higher for people identified as -Gambian. eGFR NON-AFR. EGYPTIAN 48(L) > OR = 60 mL/min/1. 73m2 [...] enexa Blood specimen (specimen) 12/14/2021 2:33 PM AIRCRAFT MACHINIST HELPER 12/14/2021 2:34 PM AIRCRAFT MACHINIST HELPER Lew Green MD LAB BLOOD ORDERABLES Final R esult [facility] [address] [place] [address] * (ABNORMAL) Lipid panel (08/14/2019 11:05 AM AIRCRAFT MACHINIST HELPER) Cholesterol 145 <200 mg/dL [facility] HDL 37(L) >50 mg/dL [facility] Triglycerides 226(H) <150 mg/dL [facility] Comment: If a non-fasting specimen was collected, consider repeat triglyceride testing on a fasting specimen if clinically indicated. Ritu et al. J. of Clin. Lipidol. 2015;9:129-169. LDL 77 mg/dL (calc) [facility] Comment: Reference range: <100 Desirable range <100 mg/dL for primary prevention; <70 mg/dL for patients with CHD or diabetic patients with > or = 2 CHD risk factors. LDL-C is now calculated using the Tamika calculation, which is a validated novel method providing better accuracy than the Friedewald equation in the estimation of LDL-C. Devon CUNNINGHAM et al. TROY. 2013;310(19): 6940-8408 (http://education.[employer].Adlogix/faq/RMP666) Chol/HDL ratio 3.9 <5.0 (calc) [facility] Non-HDL, (LDL+VLDL) 108 <130 mg/dL (calc) [facility] Comment: For patients with diabetes plus 1 major ASCVD risk factor, treating to a non-HDL-C goal of <100 mg/dL (LDL-C of <70 mg/dL) is considered a therapeutic option. 08/14/2019 11:0 5 AM AIRCRAFT MACHINIST HELPER 08/14/2019 11:06 AM AIRCRAFT MACHINIST HELPER Narrative [facility] - 08/15/2019 11:11 AM AIRCRAFT MACHINIST HELPER FASTING:YES FASTING: YES Resulting Agency Comment Performing Organization Information: Site ID: [id number] Name: [facility] Address: [address] [facility] [place] [address] Director: Brian Travis D.O., MPH Lew Green MD LAB BLOOD ORDERABLES Final R esult [facility] [place] from Last 3 Months or Most Recently Relevant to Health Maintenance [place] Care Teams Stabilizing Machine Operator Relationship Specialty Start Date End Date Fabiano Horowitz MD [address] [place] [address] PCP - General 11/16/18 Lew Green MD [address] [place] [address] Asphalt Coater Cardiology 08/08/19
--- OUTSIDE RECORDS SUMMARY | 2024-11-14 08:02 | XMS_ITS | Referral Summary ---
Author Organization [facility] Address [address] [place] [address] Care Team Providers Care Bed And Breakfast Innkeeper Name Role Phone Hodan Cisneros PA-C Primary Care Provider [phone] Source Comments [facility],non-owned Affiliates and Associated Physician Practices is amultiple site organization consisting of ambulatory clinics and hospital sitesin [place], [place], [place] and [place]. This disclosure is being madepursuant to the Care Everywhere program and may not contain all information available regarding this patient. 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 No 12/05/2022 Sex and Gender [...] CDT Respiratory Rate 23 12/06/2022 3:49 AM MECHANICAL MAINTENANCE FOREMAN Oxygen Saturation 98% 06/21/2023 9:47 AM CDT Inhaled Oxygen Concentration - - Weight 88.8 kg (195 lb 12.8 oz) 06/21/2023 9:47 AM CDT Height 154.9 cm (5' 1 ) 12/05/2022 12:0 1 AM MECHANICAL MAINTENANCE FOREMAN Body Mass Index 37 12/05/2022 12:01 AM MECHANICAL MAINTENANCE FOREMAN Functional Status Functional Status Response Date of Assess ment Is person deaf or have serious hearing difficult y? No 12/05/2022 Is person blind or have serious difficulty seein g? No 12/05/2022 Does person have serious dif ficulty walking/climbing stairs? No 12/05/2022 Does person have difficulty dressing/bathing? No 12/05/2022 Does person have difficulty doing errands alone? No 12/05/2022 Cognitive Status Response Date of Assessm ent Does person have difficulty concentrating/remembering/making decisions? No 12/05/2022 Plan of Treatment Not on file Procedures Procedure Name Priority Date/Time Associated Diagnosis Comments HEMOGLOBIN A1C - POINT OF CARE (AMB) [facility] Routine 06/07/2023 11:20 AM CDT Type 2 diabetes mellitus without complication, without long-term current use of insulin (HCC) EYE EXAM 06/06/2023 BASIC METABOLIC PANEL (CALCIUM TOTAL) Routine 12/06/2022 4:49 AM MECHANICAL MAINTENANCE FOREMAN from Last 3 Months or Most Recently Relevant to Health Maintenance Results * (ABNORMAL) HEMOGLOBIN A1C - POINT OF CARE (AMB) [facility] (06/07/2023 11:20 AM CDT) Pathologist [facility] Hemoglobin A1c POCT 8.5(A) 4.2 - 5.8 % [facility] QC Verified Yes Yes [facility] Blood BLOOD SPECIMEN / Unknown 06/07/2023 11:20 AM CDT Hodan Cisneros PA-C LAB - POINT OF CAR E ORDERABLES [facility] [id number] [phone] * EYE EXAM (06/06/2023) Anatomical Region Laterality Modality Other 06/06/2023 Narrative 06/06/2023 Ordered by an unspecified provider. Scanned Document SCANNING ONLY * (ABNORMAL) BASIC METABOLIC PANEL (CALCIUM TOTAL) (12/06/2022 4:49 AM MECHANICAL MAINTENANCE FOREMAN) Pathologist [facility] Glucose 124 70 - 125 mg/dL 12/06/2022 5:55 AM MECHANICAL MAINTENANCE FOREMAN [facility] Sodium 143 136 - 145 mmol/L 12/06/2022 5:55 AM MECHANICAL MAINTENANCE FOREMAN [facility] Potassium 4.3 3.4 - 5.1 mmol/L 12/06/2022 5:55 AM MECHANICAL MAINTENANCE FOREMAN [facility] Chloride 111(H) 98 - 107 mmol/L 12/06/2022 5:55 AM MECHANICAL MAINTENANCE FOREMAN [facility] CO2 25 22 - 29 mmol/L 12/06/2022 5:55 AM MECHANICAL MAINTENANCE FOREMAN [facility] Calcium 8.90 8.4 - 10.2 mg/dL 12/06/2022 5:55 AM MECHANICAL MAINTENANCE FOREMAN [facility] Anion Gap 11 10 - 20 mmol/L 12/06/2022 5:55 AM MECHANICAL MAINTENANCE FOREMAN [facility] BUN 34.7(H) 9.8 - 20.1 mg/dL 12/06/2022 5:55 AM MECHANICAL MAINTENANCE FOREMAN [facility] Creatinine 0.95 0.57 - 1.11 mg/dL 12/06/2022 5:55 AM MECHANICAL MAINTENANCE FOREMAN [facility] eGFR 67(L) >90 mL/min/1.7 3m2 12/06/2022 5:55 AM MECHANICAL MAINTENANCE FOREMAN [facility] Comment:The GFR result was c alculated using the updated CKD-EPI Creatinine Equation (2020). Blood BLOOD SPECIMEN / Unknown Lab Venipuncture / Unknown 12/06/2022 4:49 AM MECHANICAL MAINTENANCE FOREMAN 12/06/2022 5:34 AM MECHANICAL MAINTENANCE FOREMAN Balwinder Rasheed DO LAB - CHEMISTRY ORDE [facility] [address] from Last 3 Months or Most Recently Relevant to Health Maintenance Advance Directives * Full Code (Latest Code Status on File) Date Activated Date Inactivated Comments 12/05/2022 6:47 AM 12/06/2022 1:19 PM Care Teams Bed And Breakfast Innkeeper Relationship Specialty Start Date End Date Hodan Cisneros PA-C [address] [place] [address] PCP - General Physician Kiss Setter Hand 04/07/23
--- OUTSIDE RECORDS SUMMARY | 2024-11-14 08:02 | XMS_ITS | Patient Health Summary ---
Author Organization [facility] Address [address] [place] [address] Care Team Providers Care Java Architect Name Role Phone Hodan Cisneros PA-C Primary Care Provider [phone] Note from [facility],non-owned Affiliates and Associated Physician Practices is amultiple site organization consisting of ambulatory clinics and hospital sitesin [place], [place] and [place]. This disclosure is being madepursuant to the Care Everywhere program and may not contain all information available regarding this patient. Last updated 18.[facility] [employer] Allergies * Hydrocodone-Acetaminophen(Other) -High Criticality * vicoden [Other](Unknown) Medications * Be aware that medications may not be up to date on this document. Alwaysverify current medications with the patient. * albuterol (Proventil;Ventolin) (2.5 MG/3ML) 0.083% nebulizer solution Inhale by mouth 4 times daily as needed for Shortness of Breath or Wheezing Pt took prn for bronchitis before Reasons: Spasm of Lung Air Passages * aspirin (Aspirin) 325 MG tablet Take 1 (one) tablet by mouth once daily * VITAMIN D PO Takes Vit D3 once a day 5,000units * tirzepatide (Mounjaro) 2.5 MG/0.5ML injection(Started 04/06/2023) Inject 2.5 (two and one-half) mg subcutaneously every 7 days * rizatriptan (Maxalt) 10 MG tablet(Started 04/20/2023) Take 1 tab at the onset of migraine and may repeat in 2 hours if not resolved. 5 refills by 04/19/2024 * ferrous sulfate 325 (65 FE) MG tablet(Started 05/23/2023) Take 1 (one) tablet by mouth once daily Takes 2 a day Reasons: Anemia From Inadequate Iron in the Body 2 refills by 05/22/2024 * citalopram (CeleXA) 20 MG tablet(Started 2023) 1/2 tab daily for 1 week then increase to 1 tab daily 2 refills by 06/07/2024 * hydroxychloroquine (Plaquenil) 200 MG tablet(Started 06/13/2023) * bifantis (Align) capsule(Started 06/21/2023) Take 1 (one) capsule by mouth once daily 5 refills by 06/20/2024 * metoprolol tartrate IR (Lopressor) 50 MG tablet(Started 08/09/2023) Take 1 (one) tablet by mouth 2 times daily Reasons: High Blood Pressure Disorder 1 refill by 08/08/2024 * atorvastatin (Lipitor) 20 MG tablet(Started 09/14/2023) TAKE 1 TABLET BY MOUTH ONCE DAILY AT BEDTIME DIRECTED FOR CHOLESTEROL. 1 refill by 09/13/2024 * azithromycin (Zithromax) 250 MG tablet(Started 10/17/2023) 2 tabs now and 1 tab days 2-5 * methylPREDNISolone (Medrol Dosepak) 4 MG tablet(Started 10/17/2023) Take by mouth as directed Take as directed by mouth per package instructions. * lisinopril-hydroCHLOROthiazide (Prinzide; Zestoretic) 20-25 MG tablet(Started 11/03/2023) TAKE ONE (1) TABLET BY MOUTH ONCE DAILY, IN THE MORNING, DIRECTED FOR FLUID, SWELLING, OR BLOOD PRESSURE. 1 refill by 11/02/2024 * Continuous Blood Gluc Sensor (Dexcom G6 Sensor) [facility](Started 12/12/2023) Use 1 device once daily * Continuous Blood Gluc Transmit (Dexcom G6 Transmitter) [facility](Started 12/12/2023) Use 1 device once daily * Continuous Blood Gluc Adjunct Communications Faculty Member (Dexcom G6 Adjunct Communications Faculty Member) [facility](Started 12/12/2023) Use 1 device once daily * metFORMIN (Glucophage) 500 MG tablet(Started 03/15/2024) TAKE 1 (ONE) TABLET BY MOUTH 2 TIMES DAILY, WITH MORNING AND EVENING MEALS, FOR BLOOD SUGAR * glimepiride (Amaryl) 4 MG tablet(Started 04/04/2024) TAKE ONE TABLET BY MOUTH ONCE DAILY IN THE MORNING Active Problems Problem Noted Date Diagnosed Date [...] Recorded Patient Health Questionnaire-2 Score 0 06/21/2023 [facility] [place] of Occupat ional Health - Occupational Stress [...] place to sleep or slept in a senior living (including now)? No 12/05/2022 Sex and Gender Information Value Date Recorded Sex Assigned at Not on file Gender Identity Not on file Sexual Orientation Not on file Last Filed Vital Signs Vital Sign Reading Time Taken Comments Blood Pressure 148/76 06/21/2023 9:47 AM CDT Pulse 59 06/21/2023 9:47 AM CDT Temperature 36.2 C (97.1 F) 06/21/2023 9:47 AM CDT Respiratory Rate 23 12/06/2022 3:4 9 AM PRINCIPAL DATABASE DEVELOPER Oxygen Saturation 98% 06/21/2023 9:47 AM CDT Inhaled Oxygen Concentration - - Weight 88.8 kg (195 lb 12.8 oz) 06/21/2023 9:47 AM CDT Height 154.9 cm (5' 1 ) 12/05/2022 12:0 1 AM PRINCIPAL DATABASE DEVELOPER Body Mass Index 37 12/05/2022 12:01 AM PRINCIPAL DATABASE DEVELOPER Procedures * HEMOGLOBIN A1C - POINT OF CARE (AMB) SMGS(Performed 06/07/2023) Performed for Type 2 diabetes mellitus without complication, without long-term current use of insulin (HCC) * EYE EXAM(Performed 06/06/2023) * URINALYSIS AUTO - POINT OF CARE (AMB) SMGS(Performed 04/07/2023) Performed for Cloudy urine, Abnormal urine odor * CARDIAC RHYTHM STRIP ORDER(Performed 12/07/2022) * GLUCOSE - POINT OF CARE(Performed 12/06/2022) * PHOSPHORUS BLOOD(Performed 12/06/2022) * MAGNESIUM BLOOD(Performed 12/06/2022) * LACTIC ACID BLOOD(Performed 12/06/2022) * CBC W/O DIFFERENTIAL(Performed 12/06/2022) * BASIC METABOLIC PANEL (CALCIUM TOTAL)(Performed 12/06/2022) * GLUCOSE - POINT OF CARE(Performed 12/05/2022) * BASIC METABOLIC PANEL (CALCIUM TOTAL)(Performed 12/05/2022) * GLUCOSE - POINT OF CARE(Performed 12/05/2022) * GLUCOSE - POINT OF CARE(Performed 12/05/2022) * MAGNESIUM BLOOD(Performed 12/05/2022) * BASIC METABOLIC PANEL (CALCIUM TOTAL)(Performed 12/05/2022) * GLUCOSE - POINT OF CARE(Performed 12/05/2022) * BASIC METABOLIC PANEL (CALCIUM TOTAL)(Performed 12/05/2022) * TROPONIN I(Performed 12/05/2022) * GLUCOSE - POINT OF CARE(Performed 12/05/2022) * CT ABDOMEN PELVIS W CONTRAST(Performed 12/05/2022) Performed for Abdominal pain, epigastric * CT ANGIO CHEST(Performed 12/05/2022) Performed for Abdominal pain, epigastric * COMPREHENSIVE METABOLIC PANEL(Performed 12/05/2022) * CULTURE BLOOD(Performed 12/05/2022) * URINE MICROSCOPIC ONLY REFLEX TO CULTURE(Performed 12/05/2022) * URINALYSIS REFLEX MICROSCOPIC REFLEX CULTURE(Performed 12/05/2022) * SARS-COV-2 (COVID-19) FLU A/B RSV PCR RAPID(Performed 12/05/2022) * DIFFERENTIAL MANUAL(Performed 12/05/2022) * AMYLASE BLOOD(Performed 12/05/2022) * TROPONIN I(Performed 12/05/2022) * PT-INR(Performed 12/05/2022) * PROCALCITONIN LEVEL(Performed 12/05/2022) * LIPASE BLOOD(Performed 12/05/2022) * CK BLOOD(Performed 12/05/2022) * CBC W AUTO DIFFERENTIAL(Performed 12/05/2022) * LACTIC ACID BLOOD REFLEX TO REPEAT(Performed 12/05/2022) * CULTURE BLOOD(Performed 12/05/2022) * EKG 12-LEAD(Performed 12/05/2022) Performed for Abdominal pain, epigastric * DERMATOPATHOLOGY(Performed 01/26/2015) * SLEEP STUDY(Performed 09/24/2009) Results * (ABNORMAL) HEMOGLOBIN A1C - POINT OF CARE (AMB) SMGS (06/07/2023 11:20 AM CDT) Hemoglobin A1c POCT 8.5(A) 4.2 - 5.8 % [facility] QC Verified Yes Yes [facility] Blood BLOOD SPECIMEN / Unknown 06/07/2023 11:20 AM CDT Hodan Peralta Blayne PA-C LAB - POINT OF CAR E ORDERABLES Performing Organization Address City/[facility]/ZIP Co de Phone Number [facility] [address] [phone] * EYE EXAM (06/06/2023) Anatomical Region Laterality Modality Other 06/06/2023 Narrative 06/06/2023 Ordered by an unspecified provider. Scanned Document SCANNING ONLY * (ABNORMAL) URINALYSIS AUTO - POINT OF CARE (AMB) [facility] (04/07/2023) Clarity UA POCT Clear [facility] Color UA POCT Yellow [facility] Glucose UA Negative Negative [facility] Bilirubin UA POCT Negative Negative [facility] Ketone UA Negative Negative [facility] Specific [place] UA POCT >=1.030 1.002 - 1.030 [facility] Blood UA POCT Negative Negative [facility] pH UA 5.5 5.0 - 8.0 pH units [facility] Protein UA POCT 100.(A) Negative [facility] Urobilinogen UA 0.2 0.1 - 1.0 [facility] Nitrite UA POCT Positive(A) Negative [facility] Leukocyte UA Small(A) Negative [facility] QC Verified Yes Yes [facility] Urine URINE / Unknown 04/07/2023 Hodan Cassidygett PA-C LAB - POINT OF CAR E ORDERABLES Performing Organization Address [facility] Co de Phone Number [facility] [address] [phone] * CARDIAC RHYTHM STRIP ORDER (12/07/2022 10:51 AM PRINCIPAL DATABASE DEVELOPER) Narrative 12/07/2022 10:51 AM PRINCIPAL DATABASE DEVELOPER Ordered by an unspecified provider. Scanned Document CARDIAC SERVICES ORD ERABLES * GLUCOSE - POINT OF CARE (12/06/2022 6:19 AM PRINCIPAL DATABASE DEVELOPER) Only the most recent of6 resultswithin the time period is included. Pathologist [facility] Glucose WB/POC 121 70 - 125 mg/dL 12/06/2022 6:20 AM PRINCIPAL DATABASE DEVELOPER [facility] Specimen Type Cap Fingerstick 2022 6:20 AM PRINCIPAL DATABASE DEVELOPER [facility] Blood BLOOD SPECIMEN / Unknown 12/06/2022 6:19 AM PRINCIPAL DATABASE DEVELOPER 12/06/2022 6:20 AM PRINCIPAL DATABASE DEVELOPER Henri Jones MD LAB - POINT OF CARE ORDERABLES Performing Organization Address City/State/[facility] Co de Phone Number [facility] [address] [place], [place] [address] * (ABNORMAL) CBC W/O DIFFERENTIAL (12/06/2022 4:49 AM PRINCIPAL DATABASE DEVELOPER) [facility] WBC 8.4 4.0 - 10.0 x10E9/L 12/06/2022 5:38 AM PRINCIPAL DATABASE DEVELOPER [facility] RBC 3.04(L) 3.93 - 5.22 x10E12/L 12/06/2022 5:38 AM PRINCIPAL DATABASE DEVELOPER [facility] Hemoglobin 8.2(L) 11.2 - 15.7 gm/dL 12/06/2022 5:38 AM PRINCIPAL DATABASE DEVELOPER [facility] Hematocrit 26.5(L) 34.1 - 44.9 % 12/06/2022 5:38 AM PRINCIPAL DATABASE DEVELOPER [facility] MCV 87.2 78.0 - 100.0 fl 12/06/2022 5:38 AM PRINCIPAL DATABASE DEVELOPER [facility] MCH 27.0 25.6 - 34.0 pg 12/06/2022 5:38 AM PRINCIPAL DATABASE DEVELOPER [facility] MCHC 30.9(L) 32.3 - 36.5 gm/dL 12/06/2022 5:38 AM PRINCIPAL DATABASE DEVELOPER [facility] RDW 14.3 11.6 - 14.4 % 12/06/2022 5:38 AM PRINCIPAL DATABASE DEVELOPER [facility] MPV 12.1 9.4 - 12.4 fl 12/06/2022 5:38 AM PRINCIPAL DATABASE DEVELOPER [facility] Platelet Count 245 163 - 369 x10E9/L 12/06/2022 5:38 AM [facility] Blood BLOOD SPECIMEN / Unknown Lab Venipuncture / Unknown 12/06/2022 4:49 AM PRINCIPAL DATABASE DEVELOPER 12/06/2022 5:34 AM PRINCIPAL DATABASE DEVELOPER Balwinder Rasheed DO LAB - HEMATOLOGY ORD ERABLES [facility] [address] [place], [place] [id number] [place] [address] * (ABNORMAL) BASIC METABOLIC PANEL (CALCIUM TOTAL) (12/06/2022 4:49 AM PRINCIPAL DATABASE DEVELOPER) Only the most recent of4 resultswithin the time period is included. Pathologist [facility] Glucose 124 70 - 125 mg/dL 12/06/2022 5:55 AM [facility] Sodium 143 136 - 145 mmol/L 12/06/2022 5:55 AM [facility] Potassium 4.3 3.4 - 5.1 mmol/L 12/06/2022 5:55 AM [facility] Chloride 111(H) 98 - 107 mmol/L 12/06/2022 5:55 AM [facility] CO2 25 22 - 29 mmol/L 12/06/2022 5:55 AM [facility] Calcium 8.90 8.4 - 10.2 mg/dL 12/06/2022 5:55 AM [facility] Anion Gap 11 10 - 20 mmol/L 12/06/2022 5:55 AM [facility] BUN 34.7(H) 9.8 - 20.1 mg/dL 12/06/2022 5:55 AM [facility] Creatinine 0.95 0.57 - 1.11 mg/dL 12/06/2022 5:55 AM [facility] eGFR 67(L) >90 mL/min/1.7 3m2 12/06/2022 5:55 AM [facility] Comment:The GFR result was c alculated using the updated CKD-EPI Creatinine Equation (2020). Blood BLOOD SPECIMEN / Unknown Lab Venipuncture / Unknown 12/06/2022 4:49 AM PRINCIPAL DATABASE DEVELOPER 12/06/2022 5:34 AM PRINCIPAL DATABASE DEVELOPER Balwinder Rasheed DO LAB - CHEMISTRY ORDE RABLES Performing Organization Address City/[facility]/ZIP Co de Phone Number [facility] [address] * PHOSPHORUS BLOOD (12/06/2022 4:49 AM PRINCIPAL DATABASE DEVELOPER) Phosphorus 3.35 2.3 - 4.7 mg/dL 12/06/2022 5:55 AM PRINCIPAL DATABASE DEVELOPER [facility] Blood BLOOD SPECIMEN / Unknown Lab Venipuncture / Unknown 12/06/2022 4:49 AM PRINCIPAL DATABASE DEVELOPER 12/06/2022 5:34 AM PRINCIPAL DATABASE DEVELOPER Shaneka Jane CAT CRACKER OPERATOR-PATCHER BOWLING BALL LAB - CHEMISTR Y ORDERABLES Performing Organization Address [facility] de Phone Number [facility] [address] * MAGNESIUM BLOOD (12/06/2022 4:49 AM PRINCIPAL DATABASE DEVELOPER) Only the most recent of2 resultswithin the time period is included. Magnesium 1.7 1.6 - 2.6 mg/dL 12/06/2022 5:55 AM PRINCIPAL DATABASE DEVELOPER [facility] Blood BLOOD SPECIMEN / Unknown Lab Venipuncture / Unknown 12/06/2022 4:49 AM PRINCIPAL DATABASE DEVELOPER 12/06/2022 5:34 AM PRINCIPAL DATABASE DEVELOPER Shaneka Jane CAT CRACKER OPERATOR-PATCHER BOWLING [employer]ALL LAB - CHEMISTR Y ORDERABLES Performing Organization Address [facility] Co de Phone Number [facility] [address] * LACTIC ACID BLOOD (12/06/2022 4:49 AM PRINCIPAL DATABASE DEVELOPER) Lactic Acid 0.63 0.5 - 2 mmol/L 12/06/2022 5:48 AM PRINCIPAL DATABASE DEVELOPER [facility] Blood BLOOD SPECIMEN / Unknown Lab Venipuncture / Unknown 12/06/2022 4:49 AM PRINCIPAL DATABASE DEVELOPER 12/06/2022 5:34 AM PRINCIPAL DATABASE DEVELOPER Balwinder Rasheed DO LAB - CHEMISTRY ORDE RABLES Performing Organization Address [facility] de Phone Number [facility] [address] * TROPONIN I (12/05/2022 3:58 AM PRINCIPAL DATABASE DEVELOPER) Only the most recent of2 resultswithin the time period is included. Troponin I <0.012 <=0.032 ng/mL 12/05/2022 4:26 AM PRINCIPAL DATABASE DEVELOPER [facility] Blood BLOOD SPECIMEN / Unknown Venipuncture / Unknown 12/05/2022 3:58 AM PRINCIPAL DATABASE DEVELOPER 12/05/2022 3:59 AM PRINCIPAL DATABASE DEVELOPER Narrative [facility] - 12/05/2022 4:26 AM PRINCIPAL DATABASE DEVELOPER The universal definition of myocardial infarction (GA) being at least one value above the 99th percentile of the upper reference limit (0.028 ng/mL combined male/female), along with evidence of GA with at least one of the following: Ischemic symptoms, pathological Q waves on electrocardiogram (ECG), ischemic ECG changes or imaging evidence of new loss of viable myocardium or new regional wall motion abnormality. An elevated TNI value alone is not sufficient to make a the diagnosis of GA, serial sampling is recommended to detect the temporal rise and fall of troponin levels characteristic of GA. Any condition resulting in myocardial cell damage can increase cardiac TNI levels. In addition to GA, these include but are not limited to congestive heart failure, arrhythmia, myocarditis and non-cardiac related causes such as pulmonary embolism, renal failure and sepsis. Celestino Ervin MD LAB - CHEMISTRY OR DERABLES Performing Organization Address [facility] de Phone Number [facility] [address] * CT ABDOMEN PELVIS W CONTRAST (12/05/2022 2:25 AM PRINCIPAL DATABASE DEVELOPER) Anatomical Region Laterality Modality Abdomen, Pelvis Computed Tomogra phy 12/05/2022 6:21 AM PRINCIPAL DATABASE DEVELOPER Impressions 12/05/2022 8:42 AM PRINCIPAL DATABASE DEVELOPER IMPRESSION: CT PULMONARY ARTERIOGRAM: Limited evaluation of the distal pulmonary arteries. No large central pulmonary emboli. No thoracic aortic aneurysm or dissection. Heart size normal. Trace pericardial fluid. No consolidation, effusion or pneumothorax. No acute bony abnormality. ABDOMEN AND PELVIS CT: No acute inflammatory process in the abdomen or pelvis seen. No perigastric fluid or stranding. Cholecystectomy. No CT evidence of acute pancreatitis. No peripancreatic fluid collection. No hydronephrosis or obstructing urolithiasis. Nonobstructive bowel gas pattern with no free air. Normal appendix. Uncomplicated colonic diverticulosis. Normal size aorta. No bulky retroperitoneal or mesenteric lymphadenopathy or masses seen. Note: Concur with preliminary radiology report provided by [facility] radiologist. Edited by Emma Borrero on 12/05/2022 8:36 AM > Interpreting Provider: Syd Carey MD on 12/05/2022 8:42 AM Narrative 12/05/2022 8:42 AM PRINCIPAL DATABASE DEVELOPER PROCEDURE: CT ABDOMEN PELVIS W CONTRAST, DATE/TIME OF EXAM: 12/05/2022 2:25 AM, LOCATION [facility] INDICATION: R10.13: Epigastric pain. ADDITIONAL CLINICAL INFORMATION: Ordering Provider Reason For Exam: Technologist Note: Additional: COMPARISON: None. TECHNIQUE: CT of the chest pulmonary arteries, abdomen and pelvis was performed utilizing standard protocol. CT dose reduction technique was used, including Automated Exposure Control. IV CONTRAST: IOPAMIDOL 61 % IV SOLN:65 mL. FINDINGS AND IMPRESSION: Procedure Note Syd Carey MD - 12/05/2022 PROCEDURE: CT ABDOMEN PELVIS W CONTRAST, DATE/TIME OF EXAM: 12/05/2022 2:25 AM, LOCATION [facility] INDICATION: R10.13: Epigastric pain. ADDITIONAL CLINICAL INFORMATION: Ordering Provider Reason For Exam: Technologist Note: Additional: COMPARISON: None. TECHNIQUE: CT of the chest pulmonary arteries, abdomen and pelvis was performed utilizing standard protocol. CT dose reduction technique was used, including Automated ExposureControl. IV CONTRAST: IOPAMIDOL 61 % IV SOLN:65 mL. FINDINGS AND IMPRESSION: IMPRESSION: CT PULMONARY ARTERIOGRAM: Limited evaluation of the distal pulmonary arteries. No large central pulmonary emboli. No thoracic aortic aneurysm or dissection. Heart size normal. Trace pericardial fluid. No consolidation, effusion or pneumothorax. No acute bony abnormality. ABDOMEN AND PELVIS CT: No acute inflammatory process in the abdomen or pelvis seen. No perigastric fluid or stranding. Cholecystectomy. No CT evidence of acute pancreatitis. No peripancreatic fluidcollection. No hydronephrosis or obstructing urolithiasis. Nonobstructive bowel gas pattern with no free air. Normal appendix. Uncomplicated colonic diverticulosis. Normal size aorta. No bulky retroperitoneal or mesenteric lymphadenopathy or masses seen. Note: Concur with preliminary radiology report provided by [facility] radiologist. Edited by Emma Borrero on 12/05/2022 8:36 AM > Interpreting Provider: Syd Carey MD on 12/05/2022 8:42 AM Cel[address]ino Ervin MD CT ORDERABLES * CT ANGIO CHEST (12/05/2022 2:25 AM PRINCIPAL DATABASE DEVELOPER) Anatomical Region Laterality Modality Chest Computed Tomogra phy 12/05/2022 6:19 AM PRINCIPAL DATABASE DEVELOPER Impressions 12/05/2022 8:42 AM PRINCIPAL DATABASE DEVELOPER IMPRESSION: CT PULMONARY ARTERIOGRAM: Limited evaluation of the distal pulmonary arteries. No large central pulmonary emboli. No thoracic aortic aneurysm or dissection. Heart size normal. Trace pericardial fluid. No consolidation, effusion or pneumothorax. No acute bony abnormality. ABDOMEN AND PELVIS CT: No acute inflammatory process in the abdomen or pelvis seen. No perigastric fluid or stranding. Cholecystectomy. No CT evidence of acute pancreatitis. No peripancreatic fluid collection. No hydronephrosis or obstructing urolithiasis. Nonobstructive bowel gas pattern with no free air. Normal appendix. Uncomplicated colonic diverticulosis. Normal size aorta. No bulky retroperitoneal or mesenteric lymphadenopathy or masses seen. Note: Concur with preliminary radiology report provided by [facility] radiologist. Edited by Emma Borrero on 12/05/2022 8:35 AM > Interpreting Provider: Syd Carey MD on 12/05/2022 8:42 AM Narrative 12/05/2022 8:42 AM PRINCIPAL DATABASE DEVELOPER PROCEDURE: CT ANGIO CHEST, DATE/TIME OF EXAM: 12/05/2022 2:25 AM, LOCATION [facility] INDICATION: R10.13: Epigastric pain. ADDITIONAL CLINICAL INFORMATION: Ordering Provider Reason For Exam: Technologist Note: Additional: COMPARISON: None. TECHNIQUE: CT of the chest pulmonary arteries, abdomen and pelvis was performed utilizing standard protocol. CT dose reduction technique was used, including Automated Exposure Control. IV CONTRAST: IOPAMIDOL 61 % IV SOLN:65 mL. FINDINGS AND IMPRESSION: Procedure Note Syd Carey MD - 12/05/2022 PROCEDURE: CT ANGIO CHEST, DATE/TIME OF EXAM: 12/05/2022 2:25 AM,LOCATION [facility] INDICATION: R10.13: Epigastric pain. ADDITIONAL CLINICAL INFORMATION: Ordering Provider Reason For Exam: Technologist Note: Additional: COMPARISON: None. TECHNIQUE: CT of the chest pulmonary arteries, abdomen and pelvis was performed utilizing standard protocol. CT dose reduction technique was used, including Automated ExposureControl. IV CONTRAST: IOPAMIDOL 61 % IV SOLN:65 mL. FINDINGS AND IMPRESSION: IMPRESSION: CT PULMONARY ARTERIOGRAM: Limited evaluation of the distal pulmonary arteries. No large central pulmonary emboli. No thoracic aortic aneurysm or dissection. Heart size normal. Trace pericardial fluid. No consolidation, effusion or pneumothorax. No acute bony abnormality. ABDOMEN AND PELVIS CT: No acute inflammatory process in the abdomen or pelvis seen. No perigastric fluid or stranding. Cholecystectomy. No CT evidence of acute pancreatitis. No peripancreatic fluidcollection. No hydronephrosis or obstructing urolithiasis. Nonobstructive bowel gas pattern with no free air. Normal appendix. Uncomplicated colonic diverticulosis. Normal size aorta. No bulky retroperitoneal or mesenteric lymphadenopathy or masses seen. Note: Concur with preliminary radiology report provided by [facility] radiologist. Edited by Emma Borrero on 12/05/2022 8:35 AM > Interpreting Provider: Syd Carey MD on 12/05/2022 8:42 AM [address] Ervin MD CT ORDERABLES * CULTURE BLOOD (12/05/2022 1:11 AM PRINCIPAL DATABASE DEVELOPER) Only the most recent of2 resultswithin the time period is included. Culture No growth day 5 HUONG 12/10/2022 11:32 AM PRINCIPAL DATABASE DEVELOPER [facility] Blood PERIPHERAL BLOOD / Unknown Venipuncture / Unknown 12/05/2022 1:11 AM PRINCIPAL DATABASE DEVELOPER 12/05/2022 1:17 AM PRINCIPAL DATABASE DEVELOPER Celestino Ervin MD LAB - MICROBIOLOGY ORDERABLES [facility] [address] [place] [address], [facility] [phone] * (ABNORMAL) COMPREHENSIVE METABOLIC PANEL (12/05/2022 1:11 AM [facility]) Glucose 261(H) 70 - 125 mg/dL 12/05/2022 1:43 AM PRINCIPAL DATABASE DEVELOPER [facility] Sodium 140 136 - 145 mmol/L 12/05/2022 1:43 AM [facility] Potassium 6.8(HH) 3.4 - 5.1 mmol/L 12/05/2022 1:43 AM [facility] Chloride 116(H) 98 - 107 mmol/L 12/05/2022 1:43 AM [facility] CO2 17(L) 22 - 29 mmol/L 12/05/2022 1:43 AM [facility] Calcium 8.89 8.4 - 10.2 mg/dL 12/05/2022 1:43 AM [facility] Anion Gap 14 10 - 20 mmol/L 12/05/2022 1:43 AM [facility] BUN 51.0(H) 9.8 - 20.1 mg/dL 12/05/2022 1:43 AM [facility] Creatinine 1.13(H) 0.57 - 1.11 mg/dL 12/05/2022 1:43 AM [facility] Alkaline Phosphatase 89 40 - 150 U/L 12/05/2022 1:43 AM [facility] ALT 34 5 - 55 U/L 12/05/2022 1:43 AM [facility] AST 19 5 - 34 U/L 12/05/2022 1:43 AM [facility] Protein Total 6.1(L) 6.4 - 8.3 gm/dL 12/05/2022 1:43 AM [facility] Albumin 3.4(L) 3.5 - 5.0 gm/dL 12/05/2022 1:43 AM [facility] Globulin Total 2.7 2.6 - 4.0 gm/dL 12/05/2022 1:43 AM [facility] Albumin/Globulin Ratio 1.3 0.9 - 1.6 12/05/2022 1:43 AM [facility] Bilirubin Total 0.2 0.2 - 1.2 mg/dL 12/05/2022 1:43 AM [facility] eGFR 55(L) >90 mL/min/1.7 3m2 12/05/2022 1:43 AM [facility] Comment:The GFR result was c alculated using the updated CKD-EPI Creatinine Equation (2020). Blood BLOOD SPECIMEN / Unknown Venipuncture / Unknown 12/05/2022 1:11 AM PRINCIPAL DATABASE DEVELOPER 12/05/2022 1:17 AM PRINCIPAL DATABASE DEVELOPER Celestino Ervin MD LAB - CHEMISTRY OR DERABLES [facility] [address] * SARS-COV-2 (COVID-19) FLU A/B RSV PCR RAPID (12/05/2022 12:32 AM PRINCIPAL DATABASE DEVELOPER) COVID-19 PCR Not detected Not detected, Invalid 12/05/2022 1:20 AM [facility] Influenza A PCR Not detected Not detected 12/05/2022 1:20 AM [facility] Influenza B PCR Not detected Not detected 12/05/2022 1:20 AM [facility] RSV PCR Not detected Not detected 12/05/2022 1:20 AM [facility] Microbiology SPECIMEN FROM NASOPHARYNGEAL STRUCTURE / Unknown Collection / Unknown 12/05/2022 12:32 AM PRINCIPAL DATABASE DEVELOPER 12/05/2022 12:40 AM PRINCIPAL DATABASE DEVELOPER Narrative [facility] - 12/05/2022 1:20 AM PRINCIPAL DATABASE DEVELOPER The CepTRINA SOLAR LTDid Xpert Xpress SARS-COV-2 has been authorized by the Food and Drug administration (FDA) under an Emergency Use Authorization (EUA). This test has been validated in accordance with the FDA's guidance document Policy for Diagnostic Testing in Laboratories Certified to perform High Complexity Testing under CLIA prior to Emergency Use Authorization for Coronavirus Disease-2019 during the Public Health Emergency issued on December 07, 2019. FDA independent review of this validation is pending. This test is only authorized for the duration of time the declaration that circumstances exist justifying the authorization of emergency use of in vitro diagnostic tests for detection of SARS-COV-2 virus and/or diagnosis of COVID-19 infection under 564(b)(1)of the Act, 21 U.S.C. 360bbb-3 (b) (1), unless the authorization is terminated or revoked sooner. Celestino Ervin MD LAB - MICROBIOLOGY ORDERABLES Performing Organization Address [facility] Co de Phone Number [facility] [address] * URINE MICROSCOPIC ONLY REFLEX TO CULTURE (12/05/2022 12:32 AM PRINCIPAL DATABASE DEVELOPER) Reflex Status Culture not indicated 12/05/2022 12:47 AM PRINCIPAL DATABASE DEVELOPER [facility] RBC UA 0-2 None Seen, 0-2, 3-5 # /hpf 12/05/2022 12:47 AM PRINCIPAL DATABASE DEVELOPER [facility] WBC UA 0-5 None Seen, 0-5 # /hpf 12/05/2022 12:47 AM PRINCIPAL DATABASE DEVELOPER [facility] Bacteria UA None Seen None Seen 12/05/2022 12:47 AM PRINCIPAL DATABASE DEVELOPER [facility] Squamous Epithelial Cells 0-2 None Seen, 0-2, 3-5 /hpf 12/05/2022 12:47 AM PRINCIPAL DATABASE DEVELOPER [facility] Hyaline Casts 0-2 None Seen, 0-2 /LPF 12/05/2022 12:47 AM PRINCIPAL DATABASE DEVELOPER [facility] Urine URINE SPECIMEN OBTAINED BY CLEAN CATCH PROCEDURE / Unknown Collection / Unknown 12/05/2022 12:32 AM PRINCIPAL DATABASE DEVELOPER 12/05/2022 12:40 AM PRINCIPAL DATABASE DEVELOPER Narrative [facility] - 12/05/2022 12:47 AM PRINCIPAL DATABASE DEVELOPER Celestino Ervin MD LAB - URINALYSIS O RDERABLES Performing Organization Address [facility] Co de Phone Number [facility] [address] [place], [place] [id number] [place] [address] * (ABNORMAL) URINALYSIS REFLEX MICROSCOPIC REFLEX CULTURE (12/05/2022 12:32 AM PRINCIPAL DATABASE DEVELOPER) Color UA Yellow Straw, Yellow 12/05/2022 12:47 AM PRINCIPAL DATABASE DEVELOPER [facility] Clarity UA Slt Cloudy(A) Clear 12/05/2022 12:47 AM PRINCIPAL DATABASE DEVELOPER [facility] Glucose UA Negative Negative 12/05/2022 12:47 AM PRINCIPAL DATABASE DEVELOPER [facility] Bilirubin UA Negative Negative 12/05/2022 12:47 AM PRINCIPAL DATABASE DEVELOPER [facility] Ketone UA Negative Negative 12/05/2022 12:47 AM PRINCIPAL DATABASE DEVELOPER [facility] Specific [place] UA 1.018 1.005 - 1.030 12/05/2022 12:47 AM PRINCIPAL DATABASE DEVELOPER [facility] Blood UA Negative Negative 12/05/2022 12:47 AM PRINCIPAL DATABASE DEVELOPER [facility] pH UA 5.0 5.0 - 8.0 pH 12/05/2022 12:47 AM PRINCIPAL DATABASE DEVELOPER [facility] Protein UA Negative Negative 12/05/2022 12:47 AM PRINCIPAL DATABASE DEVELOPER [facility] Urobilinogen UA Negative Negative mg/dL 12/05/2022 12:47 AM PRINCIPAL DATABASE DEVELOPER [facility] Nitrite UA Negative Negative 12/05/2022 12:47 AM PRINCIPAL DATABASE DEVELOPER [facility] Leukocyte UA Trace(A) Negative 12/05/2022 12:47 AM PRINCIPAL DATABASE DEVELOPER [facility] Urine Microscopy Urine microscopy to follow 12/05/2022 12:47 AM PRINCIPAL DATABASE DEVELOPER [facility] Urine URINE SPECIMEN OBTAINED BY CLEAN CATCH PROCEDURE / Unknown Collection / Unknown 12/05/2022 12:32 AM PRINCIPAL DATABASE DEVELOPER 12/05/2022 12:40 AM PRINCIPAL DATABASE DEVELOPER Narrative AM [facility] - 12/05/2022 12:47 AM PRINCIPAL DATABASE DEVELOPER Celestino Ervin MD LAB - URINALYSIS O RDERABLES Performing Organization Address City/[facility]/ZIP Co de Phone Number [facility] [address] * LACTIC ACID BLOOD REFLEX TO REPEAT (12/05/2022 12:31 AM PRINCIPAL DATABASE DEVELOPER) Lactic Acid 1.92 0.5 - 2 mmol/L 12/05/2022 1:05 AM PRINCIPAL DATABASE DEVELOPER [facility] Blood BLOOD SPECIMEN / Unknown Venipuncture / Unknown 12/05/2022 12:31 AM PRINCIPAL DATABASE DEVELOPER 12/05/2022 12:40 AM PRINCIPAL DATABASE DEVELOPER Celestino Ervin MD LAB - CHEMISTRY OR DERABLES Performing Organization Address [facility] Co de Phone Number [facility] [address] * (ABNORMAL) PROCALCITONIN LEVEL (12/05/2022 12:31 AM PRINCIPAL DATABASE DEVELOPER) [facility] Signature Procalcitonin 0.17(H) <=0.10 ng/mL 12/05/2022 1:25 AM PRINCIPAL DATABASE DEVELOPER [facility] Blood BLOOD SPECIMEN / Unknown Venipuncture / Unknown 12/05/2022 12:31 AM PRINCIPAL DATABASE DEVELOPER 12/05/2022 12:40 AM PRINCIPAL DATABASE DEVELOPER Narrative [facility] - 12/05/2022 1:25 AM PRINCIPAL DATABASE DEVELOPER If baseline PCT is - >2.0 ng/mL: A PCT level above 2.0 ng/mL on the first day of ICU admission is associated with a high risk for progression to severe sepsis and/or septic shock. - <0.5 ng/mL: A PCT level below 0.5 ng/mL on the first day of ICU admission is associated with a low risk for progression to severe sepsis and/or septic shock. If the Procalcitonin measurement is performed shortly after systemic infection process has started (usually less than 6 hours), these values may still be low. As various non-infectious conditions are known to induce procalcitonin as well, Procalcitonin levels between 0.50 ng/mL and 2.00 ng/mL should be reviewed carefully to take into account the specific clinical background and condition(s) of the individual patient. The change in procalcitonin (PCT) concentration over time provides support in decision making on antibiotic discontinuation for suspected or confirmed septic patients and for suspected or confirmed lower respiratory tract infection (LRTI). Follow-up samples should be tested once every 1-2 days based upon physician discretion taking into account the patient's evolution and progress. Discontinuation of antibiotic therapy may be considered for suspected or confirmed septic patients if the current PCT is <= 0.5 ng/mL or <= 0.25 ng/mL for confirmed LRTI. If the PCT delta drop is > 80% in either condition, discontinuation of antibiotic therapy may be indicated. Duration of antibiotics should not be determined solely on PCT; established guidelines for the indication should be followed. Results should be interpreted in the context of a patient's clinical status and other laboratory tests. PCT peak: Highest observed PCT concentration PCT current: Most recent PCT concentration Calculate delta PCT using the following equation: Delta PCT = PCT Peak - PCT current X 100% PCT Peak The Change in Procalcitonin Calculator is available at [email or web address] If clinical picture has not improved and PCT remains high, reevaluate and consider treatment failure or other causes. Celestino Ervin MD LAB - CHEMISTRY OR DERABLES Performing Organization Address [facility] de Phone Number [facility] [address] * (ABNORMAL) PT-INR (12/05/2022 12:31 AM PRINCIPAL DATABASE DEVELOPER) PT 11.8 11.3 - 14.8 sec 12/05/2022 12:59 AM PRINCIPAL DATABASE DEVELOPER [facility] INR 0.87(L) 2 - 3 12/05/2022 12:59 AM PRINCIPAL DATABASE DEVELOPER [facility] Blood BLOOD SPECIMEN / Unknown Venipuncture / Unknown 12/05/2022 12:31 AM PRINCIPAL DATABASE DEVELOPER 12/05/2022 12:40 AM PRINCIPAL DATABASE DEVELOPER Narrative [facility] - 12/05/2022 12:59 AM PRINCIPAL DATABASE DEVELOPER Recommended therapeutic INR ranges for Oral Anticoagulant Therapy: 2.0-3.0 For prevention of Thrombosis or Embolism and treatment of Venous Thrombosis. 2.5- 3.5 for prevention of Recurrent Embolism or treatment of patients with Mechanical Prosthetic Heart Valves. Celestino Ervin MD LAB - COAGULATION ORDERABLES Performing Organization Address [facility] de Phone Number [facility] [address] * (ABNORMAL) DIFFERENTIAL MANUAL (12/05/2022 12:31 AM PRINCIPAL DATABASE DEVELOPER) WBC Auto 16.2(H) 4.0 - 10.0 x10E9/L 12/05/2022 12:59 AM PRINCIPAL DATABASE DEVELOPER [facility] Neutrophils % Manual 92(H) 40 - 75 % 12/05/2022 12:59 AM PRINCIPAL DATABASE DEVELOPER [facility] Lymphocytes % Manual 4(L) 19 - 53 % 12/05/2022 12:59 AM PRINCIPAL DATABASE DEVELOPER [facility] Monocytes % Manual 4(L) 5 - 13 % 12/05/2022 12:59 AM PRINCIPAL DATABASE DEVELOPER [facility] Neutrophils Absolute Manual 14.9(H) 1.6 - 6.1 x10E3/uL 12/05/2022 12:59 AM PRINCIPAL DATABASE DEVELOPER [facility] Lymphocytes Absolute Manual 0.6(L) 1.2 - 3.7 x10E3/uL 12/05/2022 12:59 AM PRINCIPAL DATABASE DEVELOPER [facility] Monocytes Absolute Manual 0.6 0.2 - 0.9 x10E3/uL 12/05/2022 12:59 AM PRINCIPAL DATABASE DEVELOPER [facility] Cells Counted 100 # cells 12/05/2022 12:59 AM [facility] Platelet Estimation Normal Normal, Adequate platelets 12/05/2022 12:59 AM [facility] WBC Morph Normal 12/05/2022 12:59 AM [facility] Anisocytosis Occasional (A) None 12/05/2022 12:59 AM [facility] Blood BLOOD SPECIMEN / Unknown Venipuncture / Unknown 12/05/2022 12:31 AM PRINCIPAL DATABASE DEVELOPER 12/05/2022 12:40 AM PRINCIPAL DATABASE DEVELOPER Celestino Ervin MD LAB - HEMATOLOGY O RDERABLES Performing Organization Address City/State/[facility] Co de Phone Number [facility] [address] * (ABNORMAL) CBC W AUTO DIFFERENTIAL (12/05/2022 12:31 AM PRINCIPAL DATABASE DEVELOPER) WBC 16.2(H) 4.0 - 10.0 x10E9/L 12/05/2022 12:47 AM [facility] RBC 3.85(L) 3.93 - 5.22 x10E12/L 12/05/2022 12:47 AM [facility] Hemoglobin 10.6(L) 11.2 - 15.7 gm/dL 12/05/2022 12:47 AM [facility] Hematocrit 33.8(L) 34.1 - 44.9 % 12/05/2022 12:47 AM [facility] MCV 87.8 78.0 - 100.0 fl 12/05/2022 12:47 AM [facility] MCH 27.5 25.6 - 34.0 pg 12/05/2022 12:47 AM [facility] MCHC 31.4(L) 32.3 - 36.5 gm/dL 12/05/2022 12:47 AM [facility] RDW 14.4 11.6 - 14.4 % 12/05/2022 12:47 AM [facility] MPV 12.1 9.4 - 12.4 fl 12/05/2022 12:47 AM [facility] Platelet Count 326 163 - 369 x10E9/L 12/05/2022 12:47 AM [facility] nRBC Auto 0 <=0 /100 WBC 12/05/2022 12:47 AM [facility] nRBC Absolute 0.00 <=0 x10E9/L 12/05/2022 12:47 AM [facility] Blood BLOOD SPECIMEN / Unknown Venipuncture / Unknown 12/05/2022 12:31 AM PRINCIPAL DATABASE DEVELOPER 12/05/2022 12:40 AM PRINCIPAL DATABASE DEVELOPER Celestino Ervin MD LAB - HEMATOLOGY O RDERABLES Performing Organization Address City/[facility]/ZIP Co de Phone Number [facility] [address] * (ABNORMAL) LIPASE BLOOD (12/05/2022 12:31 AM PRINCIPAL DATABASE DEVELOPER) Lipase 90(H) 8 - 78 U/L 12/05/2022 1:17 AM [facility] Blood BLOOD SPECIMEN / Unknown Venipuncture / Unknown 12/05/2022 12:31 AM PRINCIPAL DATABASE DEVELOPER 12/05/2022 12:40 AM PRINCIPAL DATABASE DEVELOPER Celestino Ervin MD LAB - CHEMISTRY OR DERABLES [facility] [address] * CK BLOOD (12/05/2022 12:31 AM PRINCIPAL DATABASE DEVELOPER) CK 67 29 - 168 U/L 12/05/2022 1:04 AM PRINCIPAL DATABASE DEVELOPER [facility] Blood BLOOD SPECIMEN / Unknown Venipuncture / Unknown 12/05/2022 12:31 AM PRINCIPAL DATABASE DEVELOPER 12/05/2022 12:40 AM PRINCIPAL DATABASE DEVELOPER Celestino Ervin MD LAB - CHEMISTRY OR DERABLES [facility] [address] * AMYLASE BLOOD (12/05/2022 12:31 AM PRINCIPAL DATABASE DEVELOPER) Amylase 54 25 - 125 U/L 12/05/2022 1:04 AM PRINCIPAL DATABASE DEVELOPER [facility] Blood BLOOD SPECIMEN / Unknown Venipuncture / Unknown 12/05/2022 12:31 AM PRINCIPAL DATABASE DEVELOPER 12/05/2022 12:40 AM PRINCIPAL DATABASE DEVELOPER Celestino Ervin MD LAB - CHEMISTRY OR DERABLES Performing Organization Address [facility] de Phone Number [facility] [address] * EKG 12-LEAD (12/05/2022 12:21 AM PRINCIPAL DATABASE DEVELOPER) Ventricular Rate 85 BPM [facility] Atrial Rate 85 BPM [facility] P-R Interval 148 ms [facility] QRS Duration ms 86 ms [facility] Q-T Interval ms 332 ms [facility] QTC Calculation (Bezet) 395 ms [facility] Calculated P [place] 47 degrees [facility] Calculated R [place] -34 degrees [facility] Calculated T [place] 54 degrees [facility] Interpretation EKG Normal sinus rhythm Left axis deviation Abnormal ECG No previous ECGs available Confirmed by Dontrell Oliva ([id number]) on 12/05/2022 2:15:48 PM [facility] 12/05/2022 12:2 1 AM PRINCIPAL DATABASE DEVELOPER 12/05/2022 2:15 PM PRINCIPAL DATABASE DEVELOPER Celestino Ervin MD ECG ORDERABLES Performing Organization Address City/[facility]/ZIP Co de Phone Number [facility] * PATHOLOGY TISSUE FOR DERMATOLOGY (01/26/2015 12:00 AM CDT) Result CASE: [id number] PATIENT: SHELBY JOSE PATHOLOGIC DIAGNOSIS: 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 Drug eruption/ACD/ur ticaria/urticar ial. GROSS DESCRIPTION: Received is one formalin filled container labeled with the patients name and designated back. The specimen consists of a punch measuring [id number]. The specimen is bisected and submitted in 1 cassette. Jar 0. MICROSCOPIC DESCRIPTION: There are prominent dyskeratotic keratinocytes at all levels of the epidermis and vacuolar alteration along the basal cell layer of an epidermis with overlying basket weave stratum corneum. In addition, an underlying band-like infiltrate composed mostly of lymphocytes with rare neutrophils focally obscures the dermal-epiderma l junction. There is also focal red blood cell extravasation within the papillary dermis and a superficial and mid-dermal perivascular and focally periadnexal lymphocytic infiltrate. COMMENT: The histological differential diagnosis includes: fixed drug eruption, erythema multiforme, connective tissue disease, early pityriasis lichenoides, and lichenoid contact dermatitis. Clinical correlation is recommended. Electronically signed out by Justina Flynn M.D. 01/28/2015 2:39:01PM [facility] Comment: Performed at: Dermatopathology Laboratory [facility] - Department of Dermatology [address] [place] [address] 5th [place] [address] Phone number: [phone] FAX: [phone] 01/26/2015 01/27/2015 Aretha Bell MD LAB - PATHOLOGY/CYTO LOGY ORDERABLES Performing Organization Address City/State/[facility] Co de Phone Number [facility] [address] [place] [address]. 5th Floor Lab [address] [phone] * SLEEP STUDY (09/24/2009) 09/24/2009 Narrative 09/24/2009 Ordered by an unspecified provider. Scanned Document SCANNING ONLY Care Teams Java Architect Relationship Specialty Start Date End Date Hodan Cisneros PA-C [address] [place] [address] PCP - General Physician Advanced Practice Professional 04/07/23
--- OUTSIDE RECORDS SUMMARY | 2024-11-14 08:02 | XMS_ITS | CONTINUITY OF CARE DOCUMENT ---
Author Name marcelle dilciaoralia Address Unknown Organization [facility] Address [address] [place] [address] [address] [place] [address] Phone [phone] Care Team Providers Care Starting Sheet Tank Operator Name Role Phone Octavio PANDA, Mari Unavailable MADYSON FARRELL MD Unavailable [phone] MADYSON FARRELL MD Unavailable PROBLEMS Condition Status Date Provider Notes ANEMIA active Norma Luis DYSLIPIDEMIA active Norma Luis DEPRESSION active Norma Luis SLEEP APNEA, OBSTRUCTIVE active Norma Brionna al OBESITY active Norma Luis HTN ESSENTIAL [facility] DI[facility]ETES MELLITUS active [facility] ENCOUNTERS Date Type Provider Location Encounter Diagnosis - In-person encounter Office Visit Mari Cunningham MD [facility] VITAL SIGNS Date Observation Value Provider oxygen saturation, oximetry 97 % True Mari RN blood pressure, diastolic 68 mm[Hg] Saleem Raymond blood pressure, systolic 145 mm[Hg] Rebekah Raymond pulse rate 98 /min Bianca Vaucluse respiratory rate E&M 14 /min Bianca Webb ork weight E&M 206 [lb_av] [facility] HISTORY OF MEDICATION USE Medication Status Instructions Dates Provider Indications Com ments ASPIRIN EC 81 MG ORAL TABLET DELAYED RELEASE active ONE TAB. DAILY Mari Cunningham MD METFORMIN HCL ER TABLET EXTENDED RELEASE 24 HOUR active 100mg once daily Bianca Segundo TRICOR 145 MG ORAL TABLET active once daily [facility] AMARYL 2 MG ORAL TABLET active once daily [facility] LISINOPRIL-HYDRO CHLOROTHIAZIDE 10-12.5 MG ORAL TABLET active once daily Biancacindy Raymond SOCIAL HISTORY Date Observation Value Provider social history E&M Marital Statu s: Bahman [place]el[place] with family/friends E thnicity: True Mari RN smoking status Non-Smoker True Mari RN social history reviewed E&M reviewed True Mari RN MENTAL STATUS Date Observation Value Provider assessment of judgme nt and insight E&M Alert and oriented to time, place and person. Mood and affect are normal. True Mari RN INSURANCE PROVIDERS Payer name Policy type / Coverage type Janie red green party ID [employer]\[facility] [employer] [id number] TREATMENT PLAN Date Name Performer hosp f/u : H er updated medication list for this problem includes: Lisinopril-hydrochlorothiazide 10-12.5 Mg Tabs (Lisinopril-hydrochlorothiazide) ..... Once daily Aspirin Ec 81 Mg Tbec (Aspirin) ..... One tab. daily BP today: 145/68 Prior BP: / () N uclear Stress Findings: No evidence of old myocardial infarct or stress-induced ischemia. N ormal wall motion and LVEF. EF 76%. [facility] (2010) Mari Cunningham MD hosp f/u : H er updated medication list for this problem includes: Lisinopril-hydrochlorothiazide 10-12.5 Mg Tabs (Lisinopril-hydrochlorothiazide) ..... Once daily BP today: 145/68 Mari Cunningham MD hosp f/u : H er updated medication list for this problem includes: Lisinopril-hydrochlorothiazide 10-12.5 Mg Tabs (Lisinopril-hydrochlorothiazide) ..... Once daily Amaryl 2 Mg Tabs (Glimepiride) ..... Once daily Metformin Hcl [id number] (Metformin hcl [id number]) ..... 100mg once daily BP today: 145/68 Prior BP: / () Mari Cunningham MD hosp f/u Mari Cunningham MD hosp f/u : H er updated medication list for this problem includes: Tricor 145 Mg Tabs (Fenofibrate) ..... Once daily BP today: 145/68 Prior BP: / () Mari Cunningham MD hosp f/u Mari Cunningham MD hosp f/u : H er updated medication list for this problem includes: Lisinopril-hydrochlorothiazide 10-12.5 Mg Tabs (Lisinopril-hydrochlorothiazide) ..... Once daily BP today: 145/68 Prior BP: / () N uclear Stress Findings: No evidence of old myocardial infarct or stress-induced ischemia. N ormal wall motion and LVEF. EF 76%. [facility] (2010) Mari Cunningham MD
--- OUTSIDE RECORDS SUMMARY | 2024-11-14 08:02 | XMS_ITS | Continuity of Care Document ---
Author Organization [facility] Address [address] [place] [address] Phone Care Team Providers Care Hydraulic Boom Operator Name Role Phone Steven Morrissey Unavailable Unavailable Procedures Procedure Date Eye Exam & Treatment Advance Directives Directive Yes / No Effective Date File Name No Information Encounters Encounter Description Practice Location Reason(s) For Visit Diagnoses Date Provider Providers Copied on Encounter [facility], [address], [place], [place], [id number], [place] tel:[phone] [facility] No Information 0-201 0 Ghanshyam Steven. [address] [facility] [address], [address], [place]. tel:[phone] Family History Family Member Type Diagnosis Age At Onset No Information Payers Payer name Insurance type Covered green party ID Authoriza timarcus(s) [facility] CI [id number] Social History Type Description Quantity Date Captured Comments Sex Female Smoking Status No Information Chief Complaint And Reason For Visit No Information Reason For Referral Reason For Referral No Information History Of Present Illness Encounter Date Complaint History Of Prese nt Illness No Information Functional Status Date Functional Assessmen t No Information Instructions Date Instruction Additional Infor mation No Information Assessments Type Assessment Date No Information Patient Care Teams Name Effective Dates (start - stop) Status Members No Information
== END 2024-11-14 07:57 | disposition home or self-care (01) ==
LOC: ANHIMG 07:58
PROVIDERS: PCP Internal Medicine; Visit Provider Student in an Organized Health Care Education/Training Program
DX: Z12.31 Encounter for screening mammogram for malignant neoplasm of breast (principal)
CPT/HCPCS: 77063; 77067